=== PATIENT | male | born 1935 | race Caucasian/White ===

== ENCOUNTER 2021-02-04 12:30 | Inpatient (IN) | payer OTHER, BC ==
[2021-02-04 14:10] LABS: Absolute Lymphocytes (CBC) 1.3 K/uL (0.7-4.9); Basophils % 0.6 % (0-1.3); Hematocrit 42.9 % (39.6-49.0); Lymphocytes % 15.4 % (15.3-44.8); MPV 10.6 fL (7.6-11.3); RBC Red Blood Cell Count 4.67 M/uL (4.33-5.43)
[2021-02-04 14:29] LABS: Protime INR 1.11
[2021-02-04 14:49] LABS: ALT/SGPT 34 U/L (12-78); AST/SGOT 22 U/L (15-37); Albumin 3.4 g/dL (3.4-5.0); Alkaline Phosphatase 52 U/L (45-117); BUN Blood Urea Nitrogen 47 mg/dL (7-18); Bicarbonate 22 mmol/L (21-32); Bilirubin Direct 0.2 mg/dL (0-0.2); Bilirubin Total 0.6 mg/dL (0.2-1.0); Glucose Level 223 mg/dL (74-106); Magnesium 2.3 mg/dL (1.8-2.4); NT PRO-BNP 742 pg/mL (<450); Potassium 4.9 mmol/L (3.5-5.1); Protein, Total 7.4 g/dL (6.4-8.2); Sodium Level 135 mmol/L (136-145); Troponin (Emerg Dept Use Only) < 0.02 ng/mL (0.0-0.045)
--- NOTE | 2021-02-04 16:06 | ER ---
Nurse's Notes [facility] Name: Boby Murray Age: 85 yrs Sex: Male : 1935 Arrival Date: 02/04/2021 Time: 12:34 Bed 19 Private MD: Jeremie Garcia R Diagnosis: Pneumonia, unspecified organism-with hypoxia Presentation: 02/04 12:45 Chief complaint: Patient states: SOB x 1 year, cough x 5 days, sent by Dr. Garcia today [facility] after having blood work and chest x-ray, Dr. Garcia wants a COVID test. Coronavirus screen: Client denies travel out of the [place] in the last 14 days. cough unrelated to allergies, shortness of breath, Client presents with at least one sign or symptom that may indicate coronavirus-19. Standard/surgical mask placed on the client. Provider contacted for isolation considerations. Ebola Screen: No symptoms or risks identified at this time. Initial Sepsis Screen: Does the patient meet any 2 criteria? No. Patient's initial sepsis screen is negative. Does the patient have a suspected source of infection? No. Patient's initial sepsis screen is negative. Risk Assessment: Do you want to hurt yourself or someone else? Patient reports no desire to harm self or others. Onset of symptoms was 2019. Care prior to arrival: None. 12:45 Method Of Arrival: Ambulatory [facility] [place] 12:45 Acuity: NILO 3 7 Triage Assessment: 13:19 Respiratory: Onset: The symptoms/episode began/occurred Pt stated shortness of breath vg1 for about a year and cough began about five days ago, the patient has moderate shortness of breath. Historical: - Allergies: 12:48 No Known Allergies; jl7 - Home Meds: 15:07 metoprolol tartrate 50 mg Oral tab [Active]; isosorbide mononitrate 120 mg Oral Tb24 vg1 [Active]; aspirin 81 mg Oral tab [Active]; spironolactone 25 mg Oral tab [Active]; [place]-3 oral [Active]; Savaysa 30 mg oral tab [Active]; - PMHx: 12:48 Hypertensive disorder; High cholesterol; Myocardial infarction; jl7 - Immunization history:: Client reports receiving the 2nd dose of the Covid vaccine. - Social history:: Smoking status: Patient/guardian denies using tobacco. Screenin:18 Abuse screen: Denies threats or abuse. Nutritional screening: No deficits noted. vg1 Tuberculosis screening: No symptoms or risk factors identified. Fall Risk No fall in past 12 months (0 pts). No secondary diagnosis (0 pts). IV access (20 points). Ambulatory Aid- None/Bed Rest/Nurse Assist (0 pts). Gait- Normal/Bed Rest/Wheelchair (0 pts) Mental Status- Oriented to own ability (0 pts). Total Cabrera Fall Scale indicates No Risk (0-24 pts). Assessment: 13:10 General: Appears in no apparent distress. comfortable, Behavior is calm, cooperative. vg1 Pain: Denies pain. Neuro: Level of Consciousness is awake, alert, obeys commands, Oriented to person, place, time, situation. Cardiovascular: Patient's skin is warm and dry. Respiratory: Reports shortness of breath at rest on exertion cough that is productive, since 01/30/21 Airway is patent Respiratory effort is even, unlabored, Breath sounds with crackles in right posterior lower lobe. GI: No signs and/or symptoms were reported involving the gastrointestinal system. : No signs and/or symptoms were reported regarding the genitourinary system. EENT: Reports nasal discharge. Derm: Skin is intact, Skin is pink, warm \T\ dry. Musculoskeletal: Circulation, motion, and sensation intact. 15:06 Reassessment: Patient appears in no apparent distress at this time. Patient and/or vg1 family updated on plan of care and expected duration. Pain level reassessed. Patient is alert, oriented x 3, equal unlabored respirations, skin warm/dry/pink. Patient denies pain at this time. 17:28 Reassessment: Patient appears in no apparent distress at this time. Patient and/or vg1 family updated on plan of care and expected duration. Pain level reassessed. Patient is alert, oriented x 3, equal unlabored respirations, skin warm/dry/pink. Patient denies pain at this time. Vital Signs: 12:45 BP 136 / 76; Pulse 66; Resp 22 S; Temp 97.9(O); Pulse Ox 87% on R/A; Weight 82.55 kg; jl7 12:45 Pulse Ox 94% on 3 lpm NC; jl7 14:00 BP 108 / 72; Pulse 67; Resp 14; Pulse Ox 95% on 3 lpm NC; vg1 15:06 BP 120 / 77; Pulse 60; Resp 14; Pulse Ox 94% on 3 lpm NC; vg1 17:00 BP 112 / 73; Pulse 70; Resp 20; Pulse Ox 95% on 3 lpm NC; vg1 18:00 BP 122 / 79; Pulse 72; Resp 18; Temp 98.1; Pulse Ox 97% on 3 lpm NC; vg1 ED Course: 12:34 Patient arrived in ED. mr 12:34 Jeremie Garcia MD is Private Physician. mr 12:45 Arm band placed on right wrist. jl7 12:48 Triage completed. jl7 13:03 Lore Humphrey, RN is Primary Nurse. vg1 13:05 Meredith [facility]aldiv[facility]-C [facility]. kb 13:05 Elias Gay MD is Attending Physician. kb 13:18 Patient has correct armband on for positive identification. Placed in gown. Bed in low vg1 position. Call light in reach. Side rails up X 1. Adult w/ patient. 13:48 Inserted saline lock: 20 gauge in right antecubital area, using aseptic technique. vg1 Blood collected. 13:48 Initial lab(s) drawn, by me, sent to lab. First set of blood cultures drawn. vg1 13:50 IV discontinued, IV d/c due to infiltration. vg1 14:05 Second set of blood cultures drawn by me. vg1 14:07 Inserted saline lock: 22 gauge in right wrist, using aseptic technique. vg1 16:05 Lico Glaser MD is Hospitalizing Provider. kb 19:47 No provider procedures requiring assistance completed. Patient admitted, IV remains in vg1 place. Administered Medications: 17:22 Drug: Zithromax (azithromycin) 500 mg Route: PO; vg1 18:53 Follow up: Response: No adverse reaction vg1 17:23 Drug: Rocephin (cefTRIAXone) 1 grams Route: IV; Rate: calculated rate; Site: right vg1 wrist; 18:53 Follow up: Response: No adverse reaction; IV Status: Completed infusion vg1 Outcome: 16:05 Decision to Hospitalize by Provider. kb 19:47 Admitted to Tele accompanied by tech, via wheelchair, room 210, with oxygen, with vg1 chart, Report called to receiving RN 19:47 Condition: stable 19:47 Instructed on the need for admit. 19:48 Instructed on the need for admit. ea 19:49 Patient left the ED. vg1 Signatures: Meredith Zaldivar FNP-C FNP-Marshall Malathi Kruger, Colin, RN RN jl7 Maureen Reeves RN RN Lore Green RN RN vg1 Corrections: (The following items were deleted from the chart) 12:52 12:45 BP 136 / 76; Pulse 66bpm; Resp 22bpm; Spontaneous; Pulse Ox 89% RA; Temp 97.9F jl7 Oral; 82.55 kg; jl7
--- NOTE | 2021-02-04 16:06 | EDPHYS ---
Physician Documentation [facility] Name: Boby Murray Age: 85 yrs Sex: Male : 1935 Arrival Date: 02/04/2021 Time: 12:34 Bed 19 Private MD: Jeremie Garcia R ED Physician Elias Gay HPI: 02/04 18:49 This 85 yrs old Male presents to ER via Ambulatory with complaints of kb Breathing Difficulty, Cough. 18:49 The patient has shortness of breath at rest. Onset: The symptoms/episode began/occurred kb 1 year(s) ago. Duration: The symptoms are continuous. The patient's shortness of breath is aggravated by exertion, is alleviated by rest. Associated signs and symptoms: Pertinent positives: non-productive cough. Severity of symptoms: At their worst the symptoms were moderate in the emergency department the symptoms are unchanged. The patient has not experienced similar symptoms in the past. The patient has been recently seen by a physician: the patient's primary care provider, earlier today, with similar presenting complaints, lab tests were done, X-rays were performed, and was sent to the [facility] Emergency Department for further evaluation. Pt reports shortness of breath for a year, cough for [address] Garcia, had blood work and x-ray done and was told to come to ER for covid test. . Historical: - Allergies: 12:48 No Known Allergies; jl7 - Home Meds: 15:07 metoprolol tartrate 50 mg Oral tab [Active]; isosorbide mononitrate 120 mg Oral Tb24 vg1 [Active]; aspirin 81 mg Oral tab [Active]; spironolactone 25 mg Oral tab [Active]; [place]-3 oral [Active]; Savaysa 30 mg oral tab [Active]; - PMHx: 12:48 Hypertensive disorder; High cholesterol; Myocardial infarction; jl7 - Immunization history:: Client reports receiving the 2nd dose of the Covid vaccine. - Social history:: Smoking status: Patient/guardian denies using tobacco. ROS: 18:48 Constitutional: Negative for fever, chills, and weight loss. kb 18:48 Respiratory: Positive for cough, dyspnea on exertion, shortness of breath, Negative for hemoptysis, orthopnea, pleurisy. 18:48 All other systems are negative. Exam: 18:48 Constitutional: This is a well developed, well nourished patient who is awake, alert, kb and in no acute distress. Head/Face: Normocephalic, atraumatic. ENT: Moist Mucous membranes Cardiovascular: Regular rate and rhythm with a normal S1 and S2. No gallops, murmurs, or rubs. No pulse deficits. Abdomen/GI: Soft, non-tender. No distention Skin: Warm, dry with normal turgor. Normal color. MS/ Extremity: Pulses equal, no cyanosis. Neurovascular intact. Full, normal range of motion. Neuro: Awake and alert, GCS 15, oriented to person, place, time, and situation. Moves all extremities. Normal gait. Psych: Awake, alert, with orientation to person, place and time. Behavior, mood, and affect are within normal limits. 18:48 Respiratory: the patient does not display signs of respiratory distress, Respirations: labored breathing, that is mild, Breath sounds: rhonchi, that are mild, are located in both bases. Vital Signs: 12:45 BP 136 / 76; Pulse 66; Resp 22 S; Temp 97.9(O); Pulse Ox 87% on R/A; Weight 82.55 kg; jl7 12:45 Pulse Ox 94% on 3 lpm NC; jl7 14:00 BP 108 / 72; Pulse 67; Resp 14; Pulse Ox 95% on 3 lpm NC; vg1 15:06 BP 120 / 77; Pulse 60; Resp 14; Pulse Ox 94% on 3 lpm NC; vg1 17:00 BP 112 / 73; Pulse 70; Resp 20; Pulse Ox 95% on 3 lpm NC; vg1 18:00 BP 122 / 79; Pulse 72; Resp 18; Temp 98.1; Pulse Ox 97% on 3 lpm NC; vg1 MDM: 13:05 Patient medically screened. kb 18:47 Data reviewed: vital signs, nurses notes. Data interpreted: Pulse oximetry: on room air kb is 95 %. Interpretation: normal. Counseling: I had a detailed discussion with the patient and/or guardian regarding: the historical points, exam findings, and any diagnostic results supporting the discharge/admit diagnosis, lab results, radiology results, the need for further work-up and treatment in the hospital. Physician consultation: Lico Glaser MD regarding admission, to the telemetry unit. patient's condition, and will see patient shortly. 02/04 13:19 Order name: Basic Metabolic Panel kb 02/04 13:19 Order name: CBC with Diff kb 02/04 13:19 Order name: LFT's; Complete Time: 14:49 kb 02/04 13:19 Order name: Magnesium; Complete Time: 14:49 kb 02/04 13:19 Order name: NT PRO-BNP; Complete Time: 14:49 kb 02/04 13:19 Order name: PT-INR; Complete Time: 15:36 kb 02/04 13:19 Order name: Troponin (emerg Dept Use Only); Complete Time: 14:49 kb 02/04 13:19 Order name: Basic Metabolic Panel; Complete Time: 14:49 EDMS 02/04 13:19 Order name: CBC with Automated Diff; Complete Time: 14:16 EDMS 02/04 13:27 Order name: Blood Culture Adult (2) kb 02/04 13:27 Order name: Lactate; Complete Time: 14:47 kb 02/04 13:27 Order name: Procalcitonin; Complete Time: 15:02 kb 02/04 13:27 Order name: Blood Culture EDMS 02/04 13:19 Order name: EKG; Complete Time: 13:20 kb 02/04 13:19 Order name: Cardiac monitoring; Complete Time: 14:06 kb 02/04 13:19 Order name: EKG - Nurse/Tech; Complete Time: 14:06 kb 02/04 13:19 Order name: IV Saline Lock; Complete Time: 14:06 kb 02/04 13:19 Order name: Labs collected and sent; Complete Time: 14:06 kb 02/04 13:19 Order name: O2 Per Protocol; Complete Time: 13:24 kb 02/04 13:19 Order name: O2 Sat Monitoring; Complete Time: 13:24 kb 02/04 16:00 Order name: SARS-COV-2 RT PCR; Complete Time: 16:02 EDMS 02/04 17:52 Order name: Procalcitonin EDMS Administered Medications: 17:22 Drug: Zithromax (azithromycin) 500 mg Route: PO; vg1 18:53 Follow up: Response: No adverse reaction vg1 17:23 Drug: Rocephin (cefTRIAXone) 1 grams Route: IV; Rate: calculated rate; Site: right vg1 wrist; 18:53 Follow up: Response: No adverse reaction; IV Status: Completed infusion vg1 Disposition Summary: 02/04/21 16:05 Hospitalization Ordered Hospitalization Status: Observation kb Provider: Lico Glaser Location: Telemetry/MedSurg (observation) kb Condition: Stable kb Problem: new kb Symptoms: are unchanged kb Bed/Room Type: Standard Room Assignment: 210(02/04/21 18:36) dw Diagnosis - Pneumonia, unspecified organism - with hypoxia kb Forms: - Medication Reconciliation Form kb - SBAR form kb Addendum: 02/06/2021 19:18 Co-signature as Attending Physician, Elias Gay MD. r n Signatures: Dispatcher [employer] EDMS Meredith Zaldivar, ENTRY LEVEL SALES CONSULTANT-C ENTRY LEVEL SALES CONSULTANT-CkJeanna Leavitt RN RN dw Elias Gay MD MD rn Leal, Jahala RN RN jl7 Lore Humphrey RN RN vg1 Corrections: (The following items were deleted from the chart) 02/04 14:46 13:20 CORONAVIRUS+MR.LAB.BRZ ordered. EDMD EDMS 18:36 16:05 kb dw
[2021-02-04] MEDS ORDERED: AZITHROMYCIN 250 MG TAB ONE (17:39)
[2021-02-04] MEDS ORDERED: CEFTRIAXONE/SWI 1gm 1 GM/10 ML SYR ONE (17:40)
[2021-02-04] MEDS ORDERED: ACETAMINOPHEN 500 MG TAB PO PRN (17:46)
[2021-02-04] MEDS ORDERED: ALPRAZOLAM 0.25 MG TABLET PO PRN (17:46)
[2021-02-04] MEDS ORDERED: ONDANSETRON 4 MG/2 ML VIAL IV PRN (17:46)
[2021-02-04 20:15] VITALS: BMI 23.3
[2021-02-04] MEDS: NA CHLORIDE 0.9% 1,000 ML IV SCH (21:05)
[2021-02-04] MEDS: Levofloxacin500mg IV 500 MG/100 ML BAG IV SCH (22:11)
[2021-02-04] MEDS: PIPER/TAZO/NS 3.375gm 3.375 GM/100 ML BAG IVPB SCH (23:58)
[2021-02-05 00:47] LABS: Urine Appearance CLEAR (Clear); Urine Bilirubin NEGATIVE (Negative); Urine Blood NEGATIVE (Negative); Urine Color YELLOW (Yellow); Urine Glucose TRACE (Negative); Urine Protein NEGATIVE (Negative); Urine Specific Gravity 1.015 (1.005-1.030); Urine Urobilinogen 0.2 mg/dL (0.2-1.0)
[2021-02-05 00:51] LABS: Urine Microscopic Reflex NO UMIC
[2021-02-05] MEDS ORDERED: HEPARIN 5000 UNIT/ML 1 ML VIAL SQ SCH (01:00)
[2021-02-05 05:20] LABS: Absolute Lymphocytes (CBC) 1.4 K/uL (0.7-4.9); Basophils % 0.4 % (0-1.3); Hematocrit 40.3 % (39.6-49.0); Lymphocytes % 16.9 % (15.3-44.8); RBC Red Blood Cell Count 4.42 M/uL (4.33-5.43)
[2021-02-05 05:37] LABS: Bilirubin Total 0.6 mg/dL (0.2-1.0); Magnesium 1.9 mg/dL (1.8-2.4); Phosphorus 3.5 mg/dL (2.5-4.9); Potassium 5.2 mmol/L (3.5-5.1); Protein, Total 6.6 g/dL (6.4-8.2)
[2021-02-05] MEDS: PIPER/TAZO/NS 3.375gm 3.375 GM/100 ML BAG IVPB SCH ×4 (06:09→23:42)
[2021-02-05] MEDS: ENOXAPARIN 40 MG/0.4 ML SQ SCH (07:49)
[2021-02-05] MEDS: NA CHLORIDE 0.9% 1,000 ML IV SCH ×2 (07:51→19:43)
[2021-02-05] MEDS ORDERED: PNEUMOCOCCAL VACCINE 0.5 ML IMVAC ONE (08:00)
[2021-02-05] MEDS: BENZONATATE 100 MG CAP PO SCH ×3 (13:44→21:13)
[2021-02-05] MEDS ORDERED: GUAIFENESIN/CODEINE 5ML UCUP PO PRN (14:00)
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
--- NOTE | 2021-02-05 16:36 | EKG ---
Test Date: 2021-02-04 Test Time: 13:37:19 Mechanical Repair Worker: KATELYNN MEASUREMENT RESULTS: Intervals: Rate: 58 DE: 200 QRSD: 96 QT: 418 QTc: 410 [place]: P: 81 DE: 200 QRS: -29 T: 87 INTERPRETIVE STATEMENTS: Sinus bradycardia Low voltage QRS Anterolateral infarct, age undetermined Abnormal ECG No previous ECG available for comparison Electronically Signed On 02-05-21 16:33:11 CDT by Silvio Loyd
--- NOTE | 2021-02-05 16:49 | P.PN ---
Subjective Date of Service: 02/05/21 Patient still short of breath. Patient still a little hypoxic. Continue with nebs, steroids, and antibiotics. Repeat chest x-ray. Review of Systems 10-point ROS is otherwise unremarkable Physical Examination - Vital Signs Temperature: 97.2 F Blood Pressure: 129/72 Pulse: 104 Respirations: 20 Pulse Ox (%): 93 - Physical Exam General: Alert, In no apparent distress HEENT: Atraumatic, PERRLA, EOMI Neck: Supple, JVD not distended Respiratory: Clear to auscultation bilaterally, Normal air movement Cardiovascular: Regular rate/rhythm, Normal S1 S2 Gastrointestinal: Normal bowel sounds, No tenderness Musculoskeletal: No tenderness Integumentary: No rashes Neurological: Normal speech, Normal tone, Normal affect Lymphatics: No axilla or inguinal lymphadenopathy - Studies Medications List Reviewed: Yes Assessment & Plan - Problems (Diagnosis) (1) Community acquired bacterial pneumonia Status: Acute (2) COPD with acute exacerbation Status: Acute (3) Hypoxemia Status: Acute - Plan continue with plan of care as mentioned below 1. Continue with IV antibiotics 2. Awaiting sputum and blood culture 3. Repeat chest x-ray 4. Will proceed with CT scan of the chest if pneumonia is not improved 5. Pulmonary consultation if symptoms are not better 6. Continue with nebs as needed; will start steroids 7. O2 per protocol; will add low-dose diuretic 8. Hep-Lock IV 9. Monitor labs closely 10. GI and DVT prophylaxis Discharge Plan: Home Plan to discharge in: Greater than 2 days - Advance Directives Does patient have a Living Will: No Does patient have a Durable POA for Healthcare: No - Code Status/Comfort Care Code Status: Full Code Critical Care: No Time Spent Managing PTS Care (In Minutes): 35
[2021-02-05] MEDS: METHYLPREDNISOLONE 125 MG INJ IV SCH ×2 (17:56→23:43)
[2021-02-05] MEDS: Levofloxacin500mg IV 500 MG/100 ML BAG IV SCH (19:42)
[2021-02-05] MEDS: ALBUTEROL 2.5 MG/3 ML NEB SOL NEB SCH (19:45)
[2021-02-05] MEDS ORDERED: HOME MED 1 EA UNK (Simvastatin [Simvastatin] 40 MG Tablet) PO SCH (21:00)
[2021-02-05] MEDS: ATORVASTATIN 20 MG TAB PO SCH (21:12)
[2021-02-05] MEDS: NIACIN 500 MG SR TAB PO SCH (21:12)
[2021-02-05] MEDS: METOPROLOL TAR 25 MG TAB PO SCH (21:12)
[2021-02-05] MEDS: DIPHENHYDRAMINE 25 MG TAB/CAP PO SCH (21:13)
[2021-02-06] MEDS: ALBUTEROL 2.5 MG/3 ML NEB SOL NEB SCH ×4 (01:15→19:40)
[2021-02-06] MEDS: METHYLPREDNISOLONE 125 MG INJ IV SCH ×3 (05:00→17:05)
[2021-02-06] MEDS: PIPER/TAZO/NS 3.375gm 3.375 GM/100 ML BAG IVPB SCH ×3 (05:01→17:05)
[2021-02-06 06:06] LABS: Absolute Lymphocytes (CBC) 0.8 K/uL (0.7-4.9); Basophils % 0.1 % (0-1.3); Hematocrit 42.5 % (39.6-49.0); Lymphocytes % 9.7 % (15.3-44.8); MPV 10.2 fL (7.6-11.3); RBC Red Blood Cell Count 4.62 M/uL (4.33-5.43)
[2021-02-06 06:26] LABS: Albumin 2.9 g/dL (3.4-5.0); Phosphorus 3.1 mg/dL (2.5-4.9); Potassium 4.9 mmol/L (3.5-5.1)
[2021-02-06] MEDS: ISOSORBIDE MONO SR 60 MG TAB PO SCH (08:19)
[2021-02-06] MEDS: ENOXAPARIN 40 MG/0.4 ML SQ SCH (08:20)
[2021-02-06] MEDS: METOPROLOL TAR 50 MG TAB PO SCH (08:20)
[2021-02-06] MEDS: ASPIRIN EC 81 MG TAB PO SCH (08:23)
[2021-02-06] MEDS: BENZONATATE 100 MG CAP PO SCH ×3 (08:24→20:33)
[2021-02-06 08:53] LABS: Blood Morphology Comment NOT SEEN (NOT SEEN); Platelet Estimate ADEQ
[2021-02-06] MEDS ORDERED: SPIRONOLACTONE 25 MG TABLET PO SCH (09:00)
[2021-02-06] MEDS: NA CHLORIDE 0.9% 1,000 ML IV SCH (10:00)
[2021-02-06] MEDS: Levofloxacin500mg IV 500 MG/100 ML BAG IV SCH (18:05)
[2021-02-06] MEDS: NIACIN 500 MG SR TAB PO SCH (20:33)
[2021-02-06] MEDS: ATORVASTATIN 20 MG TAB PO SCH (20:33)
[2021-02-06] MEDS: DIPHENHYDRAMINE 25 MG TAB/CAP PO SCH (20:33)
[2021-02-06] MEDS: METOPROLOL TAR 25 MG TAB PO SCH (20:34)
[2021-02-07] MEDS: METHYLPREDNISOLONE 125 MG INJ IV SCH ×3 (01:11→12:19)
[2021-02-07] MEDS: PIPER/TAZO/NS 3.375gm 3.375 GM/100 ML BAG IVPB SCH ×2 (01:11→05:43)
[2021-02-07] MEDS: ALBUTEROL 2.5 MG/3 ML NEB SOL NEB SCH ×2 (02:30→07:37)
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
--- NOTE | 2021-02-07 08:13 | ECHO ---
HEIGHT: 6 ft 1 in WEIGHT: 181 lb 15.866 oz DATE OF STUDY: 02/06/[address]: Lico Glaser MD 2-DIMENSIONAL: YES M.MODE: YES DOPPLER: YES COLOR FLOW: YES TDS: PORTABLE: DEFINITY: BUBBLE STUDY: DIAGNOSIS: CONGESTIVE HEART FAILURE CARDIAC HISTORY: CATHERIZATION: NO SURGERY: NO PROSTHETIC VALVE: NO PACEMAKER: NO MEASUREMENTS (cm) DIASTOLIC (NORMALS) SYSTOLIC (NORMALS) IVSd 0.9 (0.6-1.2) LA Diam 2.9 (1.9-4.0) LVEF 58% LVIDd 3.6 (3.5-5.7) LVIDs 2.5 (2.0-3.5) %FS 30% LVPWd 1.0 (0.6-1.2) Ao Diam 3.4 (2.0-3.7) 2 DIMENSIONAL ASSESSMENT: RIGHT ATRIUM: NORMAL LEFT ATRIUM: NORMAL RIGHT VENTRICLE: NORMAL LEFT VENTRICLE: NORMAL TRICUSPID VALVE: NORMAL MITRAL VALVE: MITRAL ANNULAR CALCIFICATION PULMONIC VALVE: NORMAL AORTIC VALVE: NORMAL PERICARDIAL EFFUSION: NONE AORTIC ROOT: NORMAL LEFT VENTRICULAR WALL MOTION: NORMAL EJECTION FRACTION. DECREASED LEFT VENTRICULAR COMPLIANCE. DOPPLER/COLOR FLOW: DECREASED LEFT VENTRICULAR COMPLIANCE. COMMENTS: DIASTOLIC DYSFUNCTION. EJECTION FRACTION 58%. NORMAL EJECTION FRACTION. MITRAL ANNULAR CALCIFICATION. TECHNOLOGIST: SHRUTI AKBAR
[2021-02-07] MEDS: ASPIRIN EC 81 MG TAB PO SCH (08:28)
[2021-02-07] MEDS: BENZONATATE 100 MG CAP PO SCH (08:29)
[2021-02-07] MEDS: ENOXAPARIN 40 MG/0.4 ML SQ SCH (08:29)
[2021-02-07] MEDS: ISOSORBIDE MONO SR 60 MG TAB PO SCH (08:32)
[2021-02-07] MEDS: METOPROLOL TAR 50 MG TAB PO SCH (08:32)
--- NOTE | 2021-02-07 11:36 | RAD REPORT ---
EXAM DESCRIPTION: RAD - Chest Single View - 02/07/2021 11:01 am CLINICAL HISTORY: pneumonia Chest pain. COMPARISON: Chest Pa And Lat (2 Views) dated 02/04/2021 FINDINGS: Portable technique limits examination quality. The lungs are emphysematous but grossly clear. The heart is normal in size. No displaced fractures. A ortic atherosclerosis. Blunting the right costophrenic angle is noted, likely chronic. IMPRESSION: Mild diffuse COPD.
[2021-02-07 14:12] VITALS: O2SAT 92
[2021-02-10 04:56] VITALS: BP 129/72; TEMP 97.2
--- NOTE | 2021-02-10 04:59 | P.PN ---
Date of Service: 02/06/21 Subjective Patient is clinically doing well with no new complaints. Respiratory status has improved. Review of Systems 10-point ROS is otherwise unremarkable Physical Examination - Vital Signs Reviewed - Physical Exam General: Alert, In no apparent distress Respiratory: Clear to auscultation bilaterally, Normal air movement Cardiovascular: Regular rate/rhythm, Normal S1 S2 Gastrointestinal: Normal bowel sounds, No tenderness Neurological: Normal speech, Normal tone, Normal affect Assessment & Plan - Problems (Diagnosis) (1) Community acquired bacterial pneumonia Status: Acute (2) COPD with acute exacerbation Status: Acute (3) Hypoxemia Status: Acute - Plan Continue with plan of care as mentioned below 1. Continue with IV antibiotics 2. Cultures are unremarkable 3. Chest x-ray with no significant worsening 4. Outpatient evaluation with pulmonary function testing 5. Pulmonary consultation pending 6. Continue with nebs, steroids, and antibiotics 7. O2 per protocol; will add low-dose diuretic 8. Hep-Lock IV 9. Monitor labs closely 10. GI and DVT prophylaxis
--- NOTE | 2021-02-10 05:01 | P.DS ---
Discharge Date: 02/07/21 Disposition: ROUTINE DISCHARGE Discharge Condition: GOOD Reason for Admission: Pneumonia Consultations: Pulmonary - Problems (1) Community acquired bacterial pneumonia Status: Acute (2) COPD with acute exacerbation Status: Acute (3) Hypoxemia Status: Acute Brief History of Present Illness: Pt is an 85yo who was admitted to the hospital to the hospital with difficulty breathing. Patient was having dyspnea and wound was tachypneic so he came into the emergency room for further evaluation. Patient workup revealed that he was short of breath in his chest x-ray from an outside PCP revealed pneumonia. Decision was made to admit the patient to the hospital because of his comorbidities. Patient also has some fibrotic changes. Patient will be admitted for nebs, steroids, and antibiotics. Hospital Course: Patient is clinically doing much better. Continue with steroids, nebs, and antibiotics. Continue with diuretics. Patient will need close outpatient follow with Pulmonary. At this time, patient is stable for discharge home. Vital Signs/Physical Exam: Temp Pulse Resp BP Pulse Ox 97.2 F 104 H 20 129/72 93 02/10/21 04:56 02/10/21 04:56 02/10/21 04:56 02/10/21 04:56 02/10/21 04:56 General: Alert, In no apparent distress, Oriented x3 Laboratory Data at Discharge: WBC 8.50 K/uL (4.3-10.9) 02/06/21 05:31 Hgb 14.5 g/dL (13.6-17.9) 02/06/21 05:31 Hct 42.5 % (39.6-49.0) 02/06/21 05:31 Plt Count 152 K/uL (152-406) 02/06/21 05:31 PT 12.8 SECONDS (9.5-12.5) H 02/04/21 13:48 INR 1.11 02/04/21 13:48 Sodium 135 mmol/L (136-145) L 02/06/21 05:31 Potassium 4.9 mmol/L (3.5-5.1) 02/06/21 05:31 BUN 30 mg/dL (7-18) H 02/06/21 05:31 Creatinine 1.46 mg/dL (0.55-1.3) H 02/06/21 05:31 Glucose 297 mg/dL (74-106) H 02/06/21 05:31 Phosphorus 3.1 mg/dL (2.5-4.9) 02/06/21 05:31 Magnesium 1.9 mg/dL (1.8-2.4) 02/05/21 05:02 Total Bilirubin 0.6 mg/dL (0.2-1.0) 02/05/21 05:02 AST 17 U/L (15-37) 02/05/21 05:02 ALT 30 U/L (12-78) 02/05/21 05:02 Alkaline Phosphatase 47 U/L (45-117) 02/05/21 05:02 Home Medications: Aspirin [Aspirin EC 81 MG] 81 mg PO DAILY 02/05/21 Benazepril/Hydrochlorothiazide [Benazepril-Hctz 20-12.5 mg Tab] 1 tab PO BID 02/05/21 Diphenhydramine [Benadryl*] 1 tab PO BEDTIME 02/05/21 Isosorbide Mononitrate [Isosorbide Mononitrate ER] 120 mg PO DAILY 02/05/21 Metoprolol Tartrate 50 mg PO DAILY 02/05/21 Niacin 500 mg PO BEDTIME 02/05/21 Simvastatin 40 mg PO BEDTIME 02/05/21 Spironolactone 25 mg PO DAILY 02/05/21 ALPRAZolam [Xanax*] 0.25 mg PO BEDTIME PRN PRN #20 tab 02/07/21 Albuterol Neb [Proventil 0.083% Neb Soln] 2.5 mg NEB [id number] #60 amp 02/07/21 Benzonatate [Tessalon Perle*] 100 mg PO TIDP PRN #30 cap 02/07/21 Budesonide/Formoterol Fumarate [Symbicort 160-4.5 Mcg Inhaler] 1 puff IH BID #1 hfa.aer.ad 02/07/21 Guaifen W/Codeine Syrup [ROBITUSSIN A-C Syrup*] 10 ml PO BIDP PRN #100 ml 02/07/21 Tiotropium [place] [Spiriva] 18 mcg IH DAILY #1 cap.w.dev 02/07/21 levoFLOXacin [Levaquin] 500 mg PO DAILY #5 tab 02/07/21 predniSONE [Deltasone] 20 mg PO BID #20 tab 02/07/21 New Medications: levoFLOXacin [Levaquin] 500 mg PO DAILY #5 tab predniSONE [Deltasone] 20 mg PO BID #20 tab Albuterol Neb [Proventil 0.083% Neb Soln] 2.5 mg NEB [id number] #60 amp Guaifen W/Codeine Syrup [ROBITUSSIN A-C Syrup*] 10 ml PO BIDP PRN #100 ml PRN Reason: Cough Tiotropium [place] [Spiriva] 18 mcg IH DAILY #1 cap.w.dev Budesonide/Formoterol Fumarate [Symbicort 160-4.5 Mcg Inhaler] 1 puff IH BID #1 hfa.aer.ad Benzonatate [Tessalon Perle*] 100 mg PO TIDP PRN #30 cap PRN Reason: Cough ALPRAZolam [Xanax*] 0.25 mg PO BEDTIME PRN PRN #20 tab PRN Reason: Insomnia Physician Discharge Instructions: PROBLEM: Pneumonia, Hypoxia GOAL: Clear understanding of disease process INSTRUCTIONS: Diet: heart healthy Activity: Fall precautions OK TO DC IV AND DC HOME FOLLOW-UP WITH PRIMARY CARE PROVIDER IN 1-2 WEEKS FOLLOW-UP WITH PULMONARY IN 1-2 WEEKS RETURN TO THE ER IF SYMPTOMS WORSENS CALL or TEXT AT [phone] IF ANY QUESTIONS REGARDING HOSPITAL STAY. PLEASE CALL THE FLOOR AT [phone] IF ANY MEDICATION OR NURSING QUESTIONS. Diet: AHA Activity: Fall precautions Followup: Flip Murray MD [ACTIVE - CAN ADMIT] - Jeremie Garcia MD [Primary Care Provider] - Time spent managing pt's care (in minutes): 35
== END 2021-02-07 14:17 | disposition home or self-care (01) | DRG 190 ==
LOC: ER 12:30 → ERHOLD 17:46 → 2ND 19:42
PROVIDERS: ADMIT Hospitalist; ATTEND Hospitalist
DX: J44.0 Chronic obstructive pulmonary disease with (acute) lower respiratory infection (principal); J15.9 Unspecified bacterial pneumonia; N17.9 Acute kidney failure, unspecified; J44.1 Chronic obstructive pulmonary disease with (acute) exacerbation; R09.02 Hypoxemia; I12.9 Hypertensive chronic kidney disease with stage 1 through stage 4 chronic kidney disease, or unspecified chronic kidney disease; N18.30 Chronic kidney disease, stage 3 unspecified; I25.10 Atherosclerotic heart disease of native coronary artery without angina pectoris; Z20.822 Contact with and (suspected) exposure to COVID-19; Z79.82 Long term (current) use of aspirin
CPT/HCPCS: 36415; 71045; 71046; 80048; 80053; 80069; 80076; 81003; 83605; 83735; 83880; 84100; 84145; 84484; 85025; 85610; 87040; 93005; 93306; 94640; 96365; 99285; J0696; J1650; J2543; J2930; J7030; U0003

== ENCOUNTER 2021-02-18 15:50 | Observation (INO) | payer OTHER, BC ==
[2021-02-18 16:55] LABS: Urine Blood Negative (Negative); Urine Glucose 3+ (Negative); Urine Protein Negative (Negative); Urine Specific Gravity 1.015 (1.005-1.030)
[2021-02-18 16:58] LABS: Absolute Lymphocytes (CBC) 1.4 K/uL (0.7-4.9); Basophils % 0.6 % (0-1.3); Hematocrit 44.5 % (39.6-49.0); Lymphocytes % 9.5 % (15.3-44.8); MPV 10.7 fL (7.6-11.3); RBC Red Blood Cell Count 4.87 M/uL (4.33-5.43)
--- NOTE | 2021-02-18 17:06 | RAD REPORT ---
EXAM DESCRIPTION: RAD - Chest Single View - 02/18/2021 4:59 pm CLINICAL HISTORY: DYSPNEA COMPARISON: Chest Single View dated 02/07/2021; Chest Pa And Lat (2 Views) dated 02/04/2021 FINDINGS: No evidence of edema or pneumonia. Borderline cardiomegaly.No acute osseous abnormality. N o significant pleural effusions or pneumothorax. IMPRESSION: No acute cardiopulmonary disease. No significant change from prior.
[2021-02-18 17:12] LABS: Urine Bacteria <20 /HPF (NONE SEEN); Urine RBC NONE SEEN /HPF (NONE SEEN)
[2021-02-18 17:19] LABS: Potassium 5.7 mmol/L (3.5-5.1)
--- NOTE | 2021-02-18 18:07 | EDPHYS ---
Physician Documentation [facility] Name: Boby Murray Age: 85 yrs Sex: Male : 1935 Arrival Date: 02/18/2021 Time: 15:51 Bed 4 Private MD: ED Physician Elias Gay HPI: 02/18 18:01 This 85 yrs old Male presents to ER via Ambulatory with complaints of rn Abnormal Lab Results - potassium. 18:01 Reports sent by kidney doctor for high potassium. Reports recent admission to hospital, rn was feeling ok. + dyspnea on exertion lately. No vomiting. + diarrhea. NO abd pain. . Onset: The symptoms/episode began/occurred at an unknown time. Severity of symptoms: At their worst the symptoms were moderate in the emergency department the symptoms are unchanged. It is unknown whether or not the patient has had similar symptoms in the past. The patient has been recently seen by a physician:. Historical: - Allergies: 16:04 No Known Allergies; hb - PMHx: 16:04 High Cholesterol; Hypertensive disorder; Myocardial infarction; hb - Immunization history:: Adult Immunizations up to date. - Social history:: Smoking status: Patient denies any tobacco usage or history of. - Family history:: not pertinent. - Hospitalizations: : The patient was recently seen at [facility]. ROS: 18:01 Constitutional: Negative for fever, chills, and weight loss, Eyes: Negative for injury, rn pain, redness, and discharge, Neck: Negative for injury, pain, and swelling, Cardiovascular: Negative for chest pain, palpitations, and edema, Respiratory: Negative for cough, wheezing, and pleuritic chest pain, Abdomen/GI: Negative for abdominal pain, nausea, vomiting, and constipation, Back: Negative for injury and pain, : Negative for injury, bleeding, discharge, and swelling, MS/Extremity: Negative for injury and deformity, Skin: Negative for injury, rash, and discoloration, Neuro: Negative for headache, weakness, numbness, tingling, and seizure. Exam: 18:01 Constitutional: This is a well developed, well nourished patient who is awake, alert, rn and in no acute distress. Ambulatory to and from bathroom. Head/Face: Normocephalic, atraumatic. Eyes: Periorbital areas with no swelling, redness, or edema. ENT: dry MM Cardiovascular: Regular rate and rhythm with a normal S1 and S2. No gallops, murmurs, or rubs. Normal PMI, no JVD. No pulse deficits. Respiratory: Mild tachypnea, no retractions, improves with rest Abdomen/GI: soft, non-tender Skin: Warm, dry MS/ Extremity: Pulses equal, no cyanosis. Neurovascular intact. Full, normal range of motion. Equal circumference. Neuro: Awake and alert, GCS 15, oriented to person, place, time, and situation. Cranial nerves II-XII grossly intact. Motor strength 5/5 in all extremities. Sensory grossly intact. Cerebellar exam normal. Normal gait. Vital Signs: 16:02 BP 106 / 70; Pulse 66; Resp 20; Temp 97.2; Pulse Ox 88% on 2 lpm NC; Weight 81.65 kg; hb Height 6 ft. (182.88 cm); Pain 0/10; 17:01 BP 99 / 72; Pulse 70; Resp 17; Pulse Ox 95% on 2 lpm NC; tw2 18:19 BP 100 / 64; Pulse 65; Resp 16; Pulse Ox 95% on 2 lpm NC; tw2 21:52 BP 102 / 68; Pulse 74; Resp 16; Pulse Ox 98% on 2 lpm NC; ak2 16:02 Body Mass Index 24.41 (81.65 kg, 182.88 cm) hb MDM: 16:16 Patient medically screened. rn 18:03 Differential Diagnosis hyperkalemia, hyperglycemia, dehydration, CKD.. Data reviewed: rn vital signs, nurses notes, lab test result(s), EKG, radiologic studies, plain films, and as a result, I will admit patient. Counseling: I had a detailed discussion with the patient and/or guardian regarding: the historical points, exam findings, and any diagnostic results supporting the discharge/admit diagnosis. 18:03 ED course: Consulted with Dr. Broussard, requested 80mg lasix and NS to be given to lower rn potassium, but BP on low side, will be more gentle for now, reeval, and administer rest of lasix when we can.. 02/18 16: Order name: Urine Microscopic Only; Complete Time: 17:17 cp 02/18 16:16 Order name: CBC with Diff; Complete Time: 17:17 rn 02/18 16:16 Order name: Basic Metabolic Panel; Complete Time: 18:00 rn 02/18 16:16 Order name: BNP; Complete Time: 18:00 rn 02/18 16:55 Order name: Urine Dipstick-Ancillary; Complete Time: 17:17 EDMS 02/18 18:32 Order name: Stool Culture rn 02/18 16:16 Order name: EKG; Complete Time: 16:17 rn 02/18 16:16 Order name: XRAY Chest (1 view); Complete Time: 17:17 rn 02/18 18:51 Order name: CONS Physician Consult EDMI 02/18 20:47 Order name: COVID-19 : Document "Date of Symptom Onset" if Symptomatic. [facility] 02/18 22:05 Order name: SARS-COV-2 RT PCR EDMI 02/18 16:16 Order name: IV Start; Complete Time: 17:33 rn 02/18 16:16 Order name: EKG - Nurse/Tech; Complete Time: 17:33 rn Administered Medications: 18:02 CANCELLED (Duplicate Order): Lasix (furosemide) 80 mg IVP once; give over 2 minutes rn 18:17 Drug: NS 0.9% 500 ml Route: IV; Rate: bolus; Site: left antecubital; tw2 21:47 Follow up: IV Status: Completed infusion [facility] 18:17 Drug: Lasix (furosemide) 40 mg Route: IVP; Site: left antecubital; tw2 21:03 Follow up: Response: No adverse reaction [facility] Disposition Summary: 02/18/21 18:06 Hospitalization Ordered Hospitalization Status: Inpatient Admission rn Provider: Lee Nascimento rn [facility] rn Condition: Stable rn Problem: new rn Symptoms: have improved rn Bed/Room Type: Standard rn Room Assignment: 230(02/18/21 22:08) cg Diagnosis - Hyperkalemia rn - Chronic kidney disease, stage 3 (moderate) rn - Hyperglycemia, unspecified rn Forms: - Medication Reconciliation Form rn - SBAR form rn Signatures: Dispatcher [employer] [facility] Elias Gay MD MD rn Page, Corey, PA PA cp Garcia, Cindy, RN RN cg Baxter, Heather, RN RN hb Wise, Tara, RN RN [facility] Lee Lynn RN 8 Corrections: (The following items were deleted from the chart) 17:33 16:16 Accucheck ordered. rn tw2 18:02 18:00 Lasix (furosemide) 80 mg IVP once; give over 2 minutes ordered. rn rn 18:04 18:01 Constitutional: This is a well developed, well nourished patient who is awake, rn alert, and in no acute distress. rn 22:08 18:06 rn cg
--- NOTE | 2021-02-18 18:07 | ER ---
Nurse's Notes [facility] Name: Boby Murray Age: 85 yrs Sex: Male : 1935 Arrival Date: 02/18/2021 Time: 15:51 Bed 4 Private MD: Diagnosis: Hyperkalemia;Chronic kidney disease, stage 3 (moderate);Hyperglycemia, unspecified Presentation: 02/18 16:02 Chief complaint: Sent by Dr. Gresham for high potassium. Pt reports generalized weakness hb x 1 week. Coronavirus screen: At this time, the client does not indicate any symptoms associated with coronavirus-19. Ebola Screen: No symptoms or risks identified at this time. Initial Sepsis Screen: Does the patient meet any 2 criteria? No. Patient's initial sepsis screen is negative. Does the patient have a suspected source of infection? No. Patient's initial sepsis screen is negative. Risk Assessment: Do you want to hurt yourself or someone else? Patient reports no desire to harm self or others. Onset of symptoms was February 18, 2021. 16:02 Method Of Arrival: Ambulatory hb 16:02 Acuity: NILO 2 hb Historical: - Allergies: 16:04 No Known Allergies; hb - PMHx: 16:04 High Cholesterol; Hypertensive disorder; Myocardial infarction; hb - Immunization history:: Adult Immunizations up to date. - Social history:: Smoking status: Patient denies any tobacco usage or history of. - Family history:: not pertinent. - Hospitalizations: : The patient was recently seen at [facility]. Screenin:11 Abuse screen: Denies threats or abuse. Nutritional screening: No deficits noted. tw2 Tuberculosis screening: No symptoms or risk factors identified. Fall Risk Secondary diagnosis (15 points) impaired mobility. Assessment: 16:13 General: Appears in no apparent distress. Behavior is calm, cooperative, appropriate tw2 for age. Pain: Denies pain. Neuro: Level of Consciousness is awake, alert, obeys commands, Oriented to person, place, situation. Cardiovascular: Patient's skin is warm and dry. Respiratory: Airway is patent Respiratory effort is even, unlabored, Respiratory pattern is regular, symmetrical. GI: No signs and/or symptoms were reported involving the gastrointestinal system. : No signs and/or symptoms were reported regarding the genitourinary system. EENT: No signs and/or symptoms were reported regarding the EENT system. Musculoskeletal: Range of motion: intact in all extremities. 17:15 Reassessment: Patient appears in no apparent distress at this time. No changes from tw2 previously documented assessment. Patient and/or family updated on plan of care and expected duration. Pain level reassessed. Patient is alert, oriented x 3, equal unlabored respirations, skin warm/dry/pink. 18:19 Reassessment: Patient appears in no apparent distress at this time. No changes from tw2 previously documented assessment. Patient and/or family updated on plan of care and expected duration. Pain level reassessed. Patient is alert, oriented x 3, equal unlabored respirations, skin warm/dry/pink. 21:52 Reassessment: Patient and/or family updated on plan of care and expected duration. Pain ak2 level reassessed. Vital Signs: 16:02 BP 106 / 70; Pulse 66; Resp 20; Temp 97.2; Pulse Ox 88% on 2 lpm NC; Weight 81.65 kg; hb Height 6 ft. (182.88 cm); Pain 0/10; 17:01 BP 99 / 72; Pulse 70; Resp 17; Pulse Ox 95% on 2 lpm NC; tw2 18:19 BP 100 / 64; Pulse 65; Resp 16; Pulse Ox 95% on 2 lpm NC; tw2 21:52 BP 102 / 68; Pulse 74; Resp 16; Pulse Ox 98% on 2 lpm NC; ak2 16:02 Body Mass Index 24.41 (81.65 kg, 182.88 cm) ED Course: 15:51 Patient arrived in ED. as 16:04 Triage completed. hb 16:04 Arm band placed on. hb 16:11 Bed in low position. Call light in reach. Side rails up X2. hall monitor on. Pulse tw2 ox on. NIBP on. 16:12 Mary Suarez, RUTH is Primary Nurse. tw2 16:12 Nelson Galindo PA is PHCP. cp 16:12 Elias Gay MD is Attending Physician. cp 17:00 XRAY Chest (1 view) In Process Unspecified. EDMS 18:05 Lee Nascimento is Hospitalizing Provider. rn 19:07 Report given to RUTH Rausch and RUTH Escobar. tw2 22:49 No provider procedures requiring assistance completed. Patient admitted, IV remains in [address] place. Administered Medications: 18:02 CANCELLED (Duplicate Order): Lasix (furosemide) 80 mg IVP once; give over 2 minutes rn 18:17 Drug: NS 0.9% 500 ml Route: IV; Rate: bolus; Site: left antecubital; tw2 21:47 Follow up: IV Status: Completed infusion [facility] 18:17 Drug: Lasix (furosemide) 40 mg Route: IVP; Site: left antecubital; tw2 21:03 Follow up: Response: No adverse reaction [facility] Outcome: 18:06 Decision to Hospitalize by Provider. rn 22:49 Admitted to Med/surg accompanied by tech, via stretcher, with chart. [facility] 22:49 Condition: good 22:49 Instructed on the need for admit, Demonstrated understanding of instructions. 22:50 Patient left the ED. [facility] Signatures: Dispatcher [employer] EDMS Elizabeth Lala Roman, MD MD rn Page, Corey, PA PA Charlette Doyle RN RN Mary Suarez RN RN 2 Lee Lynn RN RN [facility] Shalom Benson ak2 Corrections: (The following items were deleted from the chart) 18:19 17:01 BP 99 / 72; Pulse 70bpm; Resp 17bpm; Pulse Ox 95% RA; tw2 tw2
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
[2021-02-18] MEDS ORDERED: ACETAMINOPHEN 500 MG TAB PO PRN (22:41)
[2021-02-18] MEDS ORDERED: NA CHLORIDE 0.9% 500 ML IV ONE (22:41)
[2021-02-18] MEDS ORDERED: ONDANSETRON 4 MG/2 ML VIAL IV PRN (22:41)
[2021-02-18] MEDS ORDERED: IPRATROPIUM BROM 0.5MG/2.5ML NEB PRN (22:41)
[2021-02-18 23:23] VITALS: BMI 24.1
[2021-02-18] MEDS: INSULIN -REGULAR HUMAN 50 UNIT/0.5 ML ML SQ SCH (23:55)
[2021-02-19] MEDS: ALBUTEROL 2.5 MG/3 ML NEB SOL NEB SCH ×4 (00:20→13:58)
[2021-02-19] MEDS ORDERED: MELATONIN 5 MG TABLET PO PRN (00:52)
[2021-02-19 04:11] LABS: Absolute Lymphocytes (CBC) 2.5 K/uL (0.7-4.9); Basophils % 0.4 % (0-1.3); Hematocrit 41.6 % (39.6-49.0); Lymphocytes % 21.5 % (15.3-44.8); MPV 10.2 fL (7.6-11.3); RBC Red Blood Cell Count 4.61 M/uL (4.33-5.43)
[2021-02-19 04:44] LABS: Albumin 3.2 g/dL (3.4-5.0); Bilirubin Total 0.8 mg/dL (0.2-1.0); Phosphorus 3.3 mg/dL (2.5-4.9); Potassium 5.3 mmol/L (3.5-5.1); Protein, Total 6.1 g/dL (6.4-8.2); Thyroid Stimulating Hormone 1.23 uIU/mL (0.360-3.740)
[2021-02-19] MEDS: INSULIN -REGULAR HUMAN 50 UNIT/0.5 ML ML SQ SCH ×3 (05:00→17:54)
[2021-02-19] MEDS ORDERED: FUROSEMIDE 40 MG/4 ML VIAL IV ONE ×2 (05:41→06:00)
[2021-02-19] MEDS ORDERED: NA CHLORIDE 0.9% 1,000 ML IV ONE (05:41)
[2021-02-19] MEDS: HEPARIN 5000 UNIT/ML 1 ML VIAL SQ SCH ×3 (08:55→17:35)
--- NOTE | 2021-02-19 12:41 | EKG ---
Test Date: 2021-02-18 Test Time: 16:33:37 [employer] Manager: MARU MEASUREMENT RESULTS: Intervals: Rate: 106 MD: 184 QRSD: 94 QT: 372 QTc: 494 [place]: P: 67 MD: 184 QRS: -36 T: 93 INTERPRETIVE STATEMENTS: Sinus rhythm with frequent premature ventricular complexes Left axis deviation Low voltage QRS Inferior infarct, age undetermined Anterolateral infarct, age undetermined Abnormal ECG Compared to ECG 02/04/2021 13:37:19 Ventricular premature complex(es) now present Left-axis deviation now present Sinus bradycardia no longer present Myocardial infarct finding still present Electronically Signed On 02-19-21 12:37:39 CDT by Silvio Loyd
[2021-02-19] MEDS ORDERED: NA CHLORIDE 0.9% 250 ML IV ONE (13:47)
[2021-02-19] MEDS ORDERED: NA CHLORIDE 0.9% 1,000 ML IV SCH (14:00)
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
[2021-02-19 15:24] VITALS: O2SAT 91
[2021-02-19 18:44] LABS: Potassium 4.3 mmol/L (3.5-5.1)
[2021-02-19 21:20] VITALS: BP 119/83; TEMP 97.3
--- NOTE | 2021-03-10 11:23 | P.DS ---
Discharge Date: 02/19/21 Primary Care Provider: Radha Disposition: ROUTINE DISCHARGE Discharge Condition: GOOD Reason for Admission: hyperkalemia Brief History of Present Illness: Mr. Murray is an 85 yo male with CAD and CKD sent today by emergency planning and response manager for elevated potassium and blood glucose levels. He reports no other complaints. Was recently discharged from the hospital with diagnosis of pneumonia, still on home oxygen until followup with pastry artist in a few weeks. WBC 14.7, K 5.7, Na 130, BUN 58, Cr 1.74, GFR 37, Glu 315. Received 500cc bolus and 40 Lasix IV in ED. Hospital Course: Patient was dialyzed and potassium of blood sugars are stable. At this time, patient is stable for discharge and will follow up with his PCP and emergency planning and response manager as an outpatient. Vital Signs/Physical Exam: Temp Pulse Resp BP Pulse Ox 97.3 F 78 18 119/83 92 02/19/21 20:00 02/19/21 20:00 02/19/21 20:00 02/19/21 20:00 02/19/21 20:00 General: Alert, In no apparent distress, Oriented x3 Laboratory Data at Discharge: WBC 11.60 K/uL (4.3-10.9) H D 02/19/21 03:46 Hgb 14.1 g/dL (13.6-17.9) 02/19/21 03:46 Hct 41.6 % (39.6-49.0) 02/19/21 03:46 Plt Count 165 K/uL (152-406) D 02/19/21 03:46 Sodium 135 mmol/L (136-145) L 02/19/21 18:15 Potassium 4.3 mmol/L (3.5-5.1) 02/19/21 18:15 BUN 44 mg/dL (7-18) H 02/19/21 18:15 Creatinine 1.44 mg/dL (0.55-1.3) H 02/19/21 18:15 Glucose 182 mg/dL (74-106) H 02/19/21 18:15 Phosphorus 3.3 mg/dL (2.5-4.9) 02/19/21 03:46 Magnesium 2.0 mg/dL (1.8-2.4) 02/19/21 03:46 Total Bilirubin 0.8 mg/dL (0.2-1.0) 02/19/21 03:46 AST 12 U/L (15-37) L 02/19/21 03:46 ALT 29 U/L (12-78) 02/19/21 03:46 Alkaline Phosphatase 44 U/L (45-117) L 02/19/21 03:46 Triglycerides 159 mg/dL (<150) H 02/19/21 03:46 Cholesterol 116 mg/dL (<200) 02/19/21 03:46 HDL Cholesterol 40 mg/dL (40-60) 02/19/21 03:46 Cholesterol/HDL Ratio 2.90 02/19/21 03:46 Home Medications: Aspirin [Aspirin EC 81 MG] 81 mg PO DAILY 02/05/21 Isosorbide Mononitrate [Isosorbide Mononitrate ER] 120 mg PO DAILY 02/05/21 Metoprolol Tartrate 50 mg PO DAILY 02/05/21 Niacin 500 mg PO BEDTIME 02/05/21 Albuterol Neb [Proventil 0.083% Neb Soln] 2.5 mg NEB [id number] #60 amp 02/07/21 Benzonatate [Tessalon Perle*] 100 mg PO TIDP PRN #30 cap 02/07/21 Budesonide/Formoterol Fumarate [Symbicort 160-4.5 Mcg Inhaler] 1 puff IH BID #1 hfa.aer.ad 02/07/21 Guaifen W/Codeine Syrup [ROBITUSSIN A-C Syrup*] 10 ml PO BIDP PRN #100 ml 02/07/21 hydroCHLOROthiazide [Hydrochlorothiazide] 25 mg PO DAILY #30 tablet 02/19/21 New Medications: hydroCHLOROthiazide [Hydrochlorothiazide] 25 mg PO DAILY #30 tablet Physician Discharge Instructions: OK TO DC IV AND DC HOME FOLLOW-UP WITH PRIMARY CARE PROVIDER, Dr. Garcia, IN 1-2 WEEKS-patient is advised to get labs repeated to monitor renal function and potassium level FOLLOW-UP WITH CARDIOLOGY IN 1-2 WEEKS FOLLOW-UP WITH NEPHROLOGY, Dr. JEANETTE MORRIS in am RETURN TO THE ER IF symptoms worsen Patient needs to be on a low-potassium diet CALL or TEXT AT [phone] IF ANY QUESTIONS REGARDING HOSPITAL STAY. PLEASE CALL THE FLOOR AT [phone] IF ANY MEDICATION OR NURSING QUESTIONS. Diet: Renal Activity: Fall precautions Followup: Jeremie Garcia MD [ACTIVE - CAN ADMIT] - Shaila Broussard MD [Primary Care Provider] - (follow up, call to schedule appointment) Time spent managing pt's care (in minutes): 35
== END 2021-02-19 20:18 | disposition home or self-care (01) ==
LOC: ER 15:50 → ERHOLD 18:50 → 2ND 22:16
PROVIDERS: ADMIT Hospitalist; ATTEND Hospitalist
DX: E87.5 Hyperkalemia (principal); I12.9 Hypertensive chronic kidney disease with stage 1 through stage 4 chronic kidney disease, or unspecified chronic kidney disease; N18.32 Chronic kidney disease, stage 3b; R73.9 Hyperglycemia, unspecified; I25.10 Atherosclerotic heart disease of native coronary artery without angina pectoris; E87.1 Hypo-osmolality and hyponatremia; E78.00 Pure hypercholesterolemia, unspecified; I25.2 Old myocardial infarction; Z99.81 Dependence on supplemental oxygen; Z79.82 Long term (current) use of aspirin; Z87.891 Personal history of nicotine dependence; Z20.822 Contact with and (suspected) exposure to COVID-19; Z82.49 Family history of ischemic heart disease and other diseases of the circulatory system
CPT/HCPCS: 96361; 93005; 87040; 87045; 85025 ×2; 80048 ×2; 36415; 83735; 84100; 84132; 80061; 82947 ×6; 87046; 83605; 84443; 83036; 84439; 80053; 84145; 83880 ×2; 71045; 94640; 94760 ×2; 96374; 99285; U0003; J1644 ×3; J7050; J7040; J7030 ×2; G0378 ×2; 81003; 81015; J1940

== ENCOUNTER 2021-03-18 13:49 | Inpatient (IN) | payer OTHER, BC ==
[2021-03-18 15:05] LABS: Absolute Lymphocytes (CBC) 1.9 K/uL (0.7-4.9); Basophils % 0.7 % (0-1.3); Hematocrit 45.1 % (39.6-49.0); Lymphocytes % 11.5 % (15.3-44.8); MPV 10.5 fL (7.6-11.3)
[2021-03-18 15:10] LABS: Protime INR 0.97
[2021-03-18] MEDS ORDERED: NA CHLORIDE 0.9% 1,000 ML ONE ×2 (15:19→16:53)
[2021-03-18 15:30] LABS: Urine Blood Trace-intact (Negative); Urine Glucose 2+ (Negative); Urine Protein Negative (Negative)
--- NOTE | 2021-03-18 15:42 | RAD REPORT ---
EXAM DESCRIPTION: RAD - Chest Single View - 03/18/2021 3:15 pm CLINICAL HISTORY: COUGH Chest pain. COMPARISON: Chest Single View dated 02/18/2021; Chest Single View dated 02/07/2021; Chest Pa And Lat (2 Views) dated 02/04/2021 FINDINGS: Portable technique limits examination quality. Hazy right lung bases seen. Small right pleural effusion is noted. The heart is normal in size. No di splaced fractures.Aortic atherosclerosis. IMPRESSION: Mild/early infiltrate right base is possible.
[2021-03-18 16:01] LABS: Magnesium 3.2 mg/dL (1.8-2.4); Potassium 5.4 mmol/L (3.5-5.1)
--- NOTE | 2021-03-18 16:03 | ER ---
Nurse's Notes [facility] Name: Boby Murray Age: 85 yrs Sex: Male : 1935 Arrival Date: 03/18/2021 Time: 13:54 Bed 15 Private MD: Jeremie Garcia R Diagnosis: Pneumonia, unspecified organism;Other specified diabetes mellitus with ketoacidosis without coma;Dehydration Presentation: 03/18 14:11 Chief complaint: Patient states: Sent over by Nephrology Dr. Broussard Pt stated, "I've kg been urinating every hour on the hour. I havent slept well in the last 4 days. ". Coronavirus screen: Client denies travel out of the [place] in the last 14 days. At this time, unable to obtain information related to travel outside the [place] At this time, the client does not indicate any symptoms associated with coronavirus-19. Ebola Screen: Patient negative for fever greater than or equal to 101.5 degrees Fahrenheit, and additional compatible Ebola Virus Disease symptoms Patient denies exposure to infectious person. Patient denies travel to an Ebola-affected area in the 21 days before illness onset. 14:11 Method Of Arrival: Wheelchair kg 14:11 Acuity: NILO 3 kg 14:25 Initial Sepsis Screen: Does the patient meet any 2 criteria? No. Patient's initial kg sepsis screen is negative. Does the patient have a suspected source of infection? No. Patient's initial sepsis screen is negative. Risk Assessment: Do you want to hurt yourself or someone else? Patient reports no desire to harm self or others. Onset of symptoms was March 15, 2021. 16:27 Acuity: NILO 2 iw Triage Assessment: 14:16 The onset of the patients symptoms was. kg 14:25 General: Appears in no apparent distress. Behavior is calm, cooperative, appropriate kg for age, quiet. Pain: Denies pain. Historical: - Allergies: 14:16 No Known Allergies; kg - Home Meds: 14:16 aspirin 81 mg Oral tab [Active]; isosorbide mononitrate 120 mg Oral Tb24 [Active]; kg metoprolol tartrate 50 mg Oral tab once daily [Active]; [place]-3 Oral [Active]; simvastatin 40 mg Oral tab 1 tab once daily [Active]; Veltassa 8.4 gram oral pwpk 1 packet once daily [Active]; hydrochlorothiazide 25 mg Oral tab 1 tab once daily [Active]; metoprolol tartrate 25 mg Oral tab 1 tab Q Nightly [Active]; albuterol sulfate 2.5 mg /3 mL (0.083 %) Nebulizer nebu 3 mL every 6 hours [Active]; prednisolone 10 mg Oral tab 1 tab 2 times per day [Active]; Trelegy Ellipta Inhaled [Active]; Ventolin HFA 90 mcg/actuation Nebulizer HFAA 1 puff every 4 hours [Active]; - PMHx: 14:16 High Cholesterol; Hypertensive disorder; Myocardial infarction; kg - Immunization history:: Adult Immunizations up to date, Adult Immunizations Client reports receiving the 2nd dose of the Covid vaccine, Date received: October 10, 2020 Pfizer Client reports receiving the 1st dose of the Covid vaccine, September 19, 2020 [employer]. - Social history:: Smoking status: Patient denies any tobacco usage or history of. - Family history:: not pertinent. - Hospitalizations: : No recent hospitalization is reported. Screenin:26 Abuse screen: Denies threats or abuse. Denies injuries from another. Nutritional kg screening: No deficits noted. Tuberculosis screening: No symptoms or risk factors identified. Fall Risk Fall in past 12 months (25 points). Secondary diagnosis (15 points) IV access (20 points). Ambulatory Aid- Crutches/Cane/Walker (15 pts). Gait- Weak (10 pts.). Mental Status- Oriented to own ability (0 pts). Total Cabrera Fall Scale indicates Low Risk Score (25-44 pts). Fall prevention measures have been instituted. Side Rails Up X 2 Placed close to Nursing Station Frequent Obs/Assesments occuring Family Present and informed to notify staff if they need to leave bedside As available Patient and Family Educated on Fall Prevention Program and strategies. Assessment: 14:30 General: Appears in no apparent distress. Behavior is calm, cooperative, appropriate ll1 for age. Pain: Denies pain. Neuro: No deficits noted. Cardiovascular: Reports fatigue, Heart tones S1 S2 Capillary refill < 3 seconds Clubbing of nail beds is absent Patient's skin is warm and dry. Respiratory: No deficits noted. GI: Abdomen is flat, Bowel sounds present X 4 quads. Abd is soft and non tender X 4 quads. : Urine is clear, Reports urinary frequency, Denies burning with urination. Vital Signs: 14:11 Pulse 87; Resp 18; Temp 96.3; Pulse Ox 96% on R/A; Weight 77.11 kg (R); Height 6 ft. 0 kg in. (182.88 cm); Pain 0/10; 14:25 BP 128 / 61; kg 17:39 BP 100 / 71; Pulse 75; Resp 18; Pulse Ox 94% on 2 lpm NC; ll1 14:11 Body Mass Index 23.06 (77.11 kg, 182.88 cm) kg ED Course: 13:54 Patient arrived in ED. mr 13:55 Jeremie Garcia MD is Private Physician. mr 14:15 Triage completed. kg 14:25 Elias Gay MD is Attending Physician. rn 14:25 Arm band placed on right wrist. kg 14:26 Patient has correct armband on for positive identification. kg 14:31 Olamide Healy, RUTH is Primary Nurse. ll1 14:31 Patient placed in an exam room, on a stretcher. ll1 14:45 Inserted saline lock: 20 gauge in right forearm, using aseptic technique. Blood ll1 collected. 15:00 Magnesium Sent. [facility] 15:00 Basic Metabolic Panel Sent. 5 15:00 Blood Culture Sent. [facility] 15:00 CBC with Automated Diff Sent. [facility] 15:01 Blood Culture Adult (2) Sent. [facility] 15:01 Chest Single View XRAY Sent. [facility] 15:01 Lactate Sent. [facility] 15:01 Procalcitonin Sent. [facility] 15:01 Protime (+inr) Sent. [facility] 15:01 Ptt, Activated Sent. [facility] 15:01 Initial lab(s) drawn, by ED staff, sent to lab. EKG done, by ED staff, reviewed by abdiel Gay MD COVID swab sent to lab. 15:02 Warm blanket given. Pillow given. campus monitor on. Pulse ox on. NIBP on. [facility] 15:02 Bed in low position. Call light in reach. Side rails up X2. Adult w/ patient. 5 15:15 Chest Single View XRAY In Process Unspecified. EDMS 15:29 Bladder scan completed. 88 ml post void residual, Dr. Gay informed. Voided 200 ml ll1 clear yellow urine. 15:32 Urine Microscopic Only Sent. mh5 15:32 Urine Culture Sent. mh5 15:32 Magnesium Sent. mh5 15:32 Basic Metabolic Panel Sent. 5 15:32 Blood Culture Sent. 5 16:01 Lico Glaser MD is Hospitalizing Provider. rn 19:17 Primary Nurse role handed off by Olamide Healy RN mw2 03/19 08:10 Olamide Healy RN is Primary Nurse. ll1 Administered Medications: 03/18 15:04 Drug: NS 0.9% 1000 ml Route: IV; Rate: 1000 ml; Site: right forearm; ll1 16:00 Follow up: Response: No adverse reaction; RASS: Alert and Calm (0); IV Status: ll1 Completed infusion; IV Intake: 1000ml 16:42 Drug: Insulin Regular Human 10 units {Co-Signature: vg1 (Lore Humphrey RN).} Route: ll1 IVP; Site: right forearm; 17:38 Follow up: Response: No adverse reaction; RASS: Alert and Calm (0) ll1 16:43 Drug: Rocephin (cefTRIAXone) 1 grams Route: IV; Rate: calculated rate; Site: right ll1 forearm; 17:38 Follow up: Response: No adverse reaction; IV Status: Completed infusion; IV Intake: [id number] 16:44 Not Given (Physician Discretion; doctor changed order): Insulin Regular Human 10 units ll1 Sub-Q once 16:44 Drug: NS 0.9% 1000 ml Route: IV; Rate: 1000 ml; Site: right forearm; ll1 18:28 Follow up: Response: No adverse reaction; IV Status: Completed infusion; IV Intake: ll1 1000ml 17:35 Drug: Insulin Drip - (Insulin Regular Human 100 units, NS 0.9% 100 ml) {Co-Signature: ll1 vg1 (Lore Humphrey RN).} Route: IV; Rate: calculated rate; Site: right forearm; 18:28 Drug: AZITHromycin 500 mg Route: IVPB; Infused Over: 1 hrs; Site: right forearm; ll1 Intake: 16:00 IV: 1000ml; Total: 1000ml. ll1 17:38 IV: 10ml; Total: 1010ml. ll1 18:28 IV: 1000ml; Total: 2010ml. ll1 Outcome: 16:02 Decision to Hospitalize by Provider. rn 03/19 12:34 Patient left the ED. tr6 Signatures: Dispatcher [employer] EDRI Malathi Kruger Kina Leigh, RN Elias Giron MD MD rn Martinez, Maria [facility] Don, Elijah 2 Olamide Healy RN RN ll1 Gabrielle Wright RN RN tr6 Natali Llamas RN RN kg Lore Humphrey RN vg1 Corrections: (The following items were deleted from the chart) 03/18 14:23 14:16 Home Meds: spironolactone 25 mg Oral tab; kg kg 14:25 14:11 Chief complaint: Patient states: Sent over by Nephrology Dr. Broussard Pt stated, kg "I've been urinating every hour on the hour. I havent slept well in the last 4 days. " kg
--- NOTE | 2021-03-18 16:03 | EDPHYS ---
Physician Documentation [facility] Name: Boby Murray Age: 85 yrs Sex: Male : 1935 Arrival Date: 03/18/2021 Time: 13:54 Bed 15 Private MD: Jeremie Garcia R ED Physician Elias Gay HPI: 03/18 15:08 This 85 yrs old Male presents to ER via Wheelchair with complaints of rn Weakness, Dehydration. 15:08 The patient presents with urinary symptoms, urinary frequency. Onset: The rn symptoms/episode began/occurred 2 day(s) ago. Modifying factors: The symptoms are alleviated by nothing, the symptoms are aggravated by nothing. Associated signs and symptoms: Pertinent negatives: abdominal pain, fever, vomiting. Severity of symptoms: At their worst the symptoms were moderate, in the emergency department the symptoms are unchanged. The patient has not experienced similar symptoms in the past. The patient has not recently seen a physician. Patient sent in by Dr. Broussard for evaluation of increased urinary frequency and generalized weakness. Patient reports generalized weakness and increased urinary frequency for 3 days now. No fever. Positive for generalized fatigue. Denies chest pain or shortness of breath.. Historical: - Allergies: 14:16 No Known Allergies; kg - Home Meds: 14:16 aspirin 81 mg Oral tab [Active]; isosorbide mononitrate 120 mg Oral Tb24 [Active]; kg metoprolol tartrate 50 mg Oral tab once daily [Active]; Boles-3 Oral [Active]; simvastatin 40 mg Oral tab 1 tab once daily [Active]; Veltassa 8.4 gram oral pwpk 1 packet once daily [Active]; hydrochlorothiazide 25 mg Oral tab 1 tab once daily [Active]; metoprolol tartrate 25 mg Oral tab 1 tab Q Nightly [Active]; albuterol sulfate 2.5 mg /3 mL (0.083 %) Nebulizer nebu 3 mL every 6 hours [Active]; prednisolone 10 mg Oral tab 1 tab 2 times per day [Active]; Trelegy Ellipta Inhaled [Active]; Ventolin HFA 90 mcg/actuation Nebulizer HFAA 1 puff every 4 hours [Active]; - PMHx: 14:16 High Cholesterol; Hypertensive disorder; Myocardial infarction; kg - Immunization history:: Adult Immunizations up to date, Adult Immunizations Client reports receiving the 2nd dose of the Covid vaccine, Date received: October 10, 2020 [facility] Client reports receiving the 1st dose of the Covid vaccine, September 19, 2020 [facility]. - Social history:: Smoking status: Patient denies any tobacco usage or history of. - Family history:: not pertinent. - Hospitalizations: : No recent hospitalization is reported. ROS: 15:08 Constitutional: Negative for fever, chills, and weight loss, Eyes: Negative for injury, rn pain, redness, and discharge, ENT: Negative for injury, pain, and discharge, Neck: Negative for injury, pain, and swelling, Cardiovascular: Negative for chest pain, palpitations, and edema, Respiratory: Negative for shortness of breath, cough, wheezing, and pleuritic chest pain, Abdomen/GI: Negative for abdominal pain, nausea, vomiting, diarrhea, and constipation, Back: Negative for injury and pain, : Increased urinary frequency, no hematuria MS/Extremity: Negative for injury and deformity, Skin: Negative for injury, rash, and discoloration, Neuro: Negative for headache, numbness, tingling, and seizure. 15:08 All other systems are negative. Exam: 15:08 Constitutional: This is a well developed, well nourished patient who is awake, alert, rn and in no acute distress. Slow to get into bed but does not require assistance. Head/Face: Normocephalic, atraumatic. Eyes: Pupils equal round and reactive to light, extra-ocular motions intact. Lids and lashes normal. Conjunctiva and sclera are non-icteric and not injected. Cornea within normal limits. Periorbital areas with no swelling, redness, or edema. ENT: Very dry mucous membranes Cardiovascular: Regular rate and rhythm. No pulse deficits. Respiratory: No increased work of breathing, no retractions or nasal flaring. Abdomen/GI: Soft, nontender Skin: Warm, dry MS/ Extremity: Pulses equal, no cyanosis. Neuro: Awake and alert, GCS 15 17:54 ECG was reviewed by the Attending Physician. rn Vital Signs: 14:11 Pulse 87; Resp 18; Temp 96.3; Pulse Ox 96% on R/A; Weight 77.11 kg (R); Height 6 ft. 0 kg in. (182.88 cm); Pain 0/10; 14:25 BP 128 / 61; kg 17:39 BP 100 / 71; Pulse 75; Resp 18; Pulse Ox 94% on 2 lpm NC; ll1 14:11 Body Mass Index 23.06 (77.11 kg, 182.88 cm) kg MDM: 14:25 Patient medically screened. rn 15:25 ED course: Post void only 88 cc. rn 15:59 Differential diagnosis: UTI, Bunions, dehydration, sepsis. Data reviewed: vital signs, rn nurses notes, lab test result(s), EKG, radiologic studies, plain films, and as a result, I will admit patient. Data interpreted: athletic monitor: rate is 87 beats/min, rhythm is normal sinus rhythm, regular, with no ectopy, Interpretation: normal rate, normal rhythm, Pulse oximetry: on room air is 93 %. Interpretation: hypoxia. Plan: O2 by NC applied. Test interpretation: by ED physician or midlevel provider: ECG, plain radiologic studies, Chest x-ray with right early pneumonia. Counseling: I had a detailed discussion with the patient and/or guardian regarding: the historical points, exam findings, and any diagnostic results supporting the discharge/admit diagnosis, lab results, radiology results, the need for further work-up and treatment in the hospital. Response to treatment: the patient's symptoms have mildly improved after treatment. Response to treatment: and as a result, I will admit patient. Admission orders: after a detailed discussion of the patient's condition and case, the admit orders are written by me. 15:59 ED course: Patient with early right-sided pneumonia, will admit to Dr. Glaser for further rn care, already seen by Dr. Henderson. 03/18 14:33 Order name: CBC with Diff rn 03/18 14:33 Order name: Basic Metabolic Panel rn 03/18 14:33 Order name: Blood Culture Adult (2) rn 03/18 14:33 Order name: Lactate; Complete Time: 15:51 rn 03/18 14:33 Order name: Procalcitonin; Complete Time: 16:24 rn 03/18 14:33 Order name: Protime (+inr); Complete Time: 15:51 rn 03/18 14:33 Order name: Ptt, Activated; Complete Time: 15:51 rn 03/18 14:33 Order name: Urine Culture rn 03/18 14:33 Order name: Urine Microscopic Only; Complete Time: 16:24 rn 03/18 14:33 Order name: CBC with Automated Diff; Complete Time: 15:08 EDMS 03/18 14:33 Order name: Basic Metabolic Panel; Complete Time: 16:24 EDMS 03/18 14:33 Order name: Blood Culture EDMS 03/18 14:34 Order name: Magnesium; Complete Time: 16:24 rn 03/18 15:30 Order name: Urine Dipstick-Ancillary; Complete Time: 15:51 EDMS 03/18 15:55 Order name: SARS-COV-2 RT PCR; Complete Time: 16:02 EDMS 03/18 18:04 Order name: Lipid Profile EDMS 03/18 18:04 Order name: Hemoglobin A1c EDMS 03/18 18:13 Order name: Basic Metabolic Panel EDMS 03/18 18:13 Order name: Basic Metabolic Panel EDMS 03/18 18:13 Order name: CBC with Automated Diff EDMS 03/18 18:13 Order name: CBC with Automated Diff EDMS 03/18 18:14 Order name: Urinalysis EDMS 03/18 18:35 Order name: BMP ll1 03/18 18:45 Order name: Glucose, Ancillary Testing EDMS 03/18 19:14 Order name: LDL, Direct EDMS 03/18 19:27 Order name: Basic Metabolic Panel EDMO 03/18 20:10 Order name: Glucose, Ancillary Testing EDMS 03/18 21:13 Order name: Glucose, Ancillary Testing EDMS 03/18 21:19 Order name: Glucose ea 03/18 14:33 Order name: Chest Single View XRAY; Complete Time: 15:51 rn 03/18 14:34 Order name: EKG; Complete Time: 14:34 rn 03/18 21:52 Order name: Glucose, Ancillary Testing EDMS 03/18 22:02 Order name: Glucose Level EDMS 03/18 22:18 Order name: Glucose, Ancillary Testing EDMS 03/18 23:31 Order name: Glucose, Ancillary Testing EDMS 03/19 00:02 Order name: Basic Metabolic Panel EDMS 03/19 00:17 Order name: Glucose, Ancillary Testing EDMS 03/19 00:18 Order name: Acetone Level EDMS 03/19 01:20 Order name: Glucose, Ancillary Testing EDMS 03/19 02:29 Order name: Glucose, Ancillary Testing EDMS 03/19 03:05 Order name: Acetone Level EDMS 03/19 03:13 Order name: Calcium Level EDMS 03/19 03:13 Order name: Phosphorus EDMS 03/19 03:13 Order name: Magnesium EDMS 03/19 03:22 Order name: Basic Metabolic Panel EDMS 03/19 03:26 Order name: Glucose, Ancillary Testing EDMS 03/19 05:02 Order name: Glucose, Ancillary Testing EDMS 03/19 06:13 Order name: Glucose, Ancillary Testing EDMS 03/19 07:10 Order name: Glucose, Ancillary Testing EDMS 03/19 08:00 Order name: Glucose, Ancillary Testing EDMS 03/19 08:49 Order name: Acetone Level EDMS 03/19 08:50 Order name: Basic Metabolic Panel EDMS 03/19 09:17 Order name: RAD EDMS 03/19 09:57 Order name: Glucose, Ancillary Testing EDMS 03/18 14:33 Order name: IV Start; Complete Time: 14:35 rn 0810 14:33 Order name: Cardiac monitoring; Complete Time: 14:54 rn 03/18 14:33 Order name: EKG - Nurse/Tech; Complete Time: 14:54 rn 10 14:33 Order name: IV Saline Lock - Large Bore; Complete Time: 14:35 rn 10 14:33 Order name: Labs collected and sent; Complete Time: 14:35 rn 10 14:33 Order name: O2 Per Protocol; Complete Time: 14:35 rn 0810 14:33 Order name: O2 Sat Monitoring; Complete Time: 14:35 rn 10 14:33 Order name: Urine Dipstick-Ancillary (obtain specimen); Complete Time: 15:32 rn 10 14:34 Order name: EKG - Nurse/Tech; Complete Time: 14:54 rn 10 15:25 Order name: Bladder Scanner; Complete Time: 15:32 rn 0810 18:13 Order name: Consistent Carb (ADA) 1800 Donte EDMS EC:54 Rate is 84 beats/min. Rhythm is irregularly irregular. QRS [place] is Normal. QRS interval rn is normal. QT interval is normal. No Q waves. T waves are Normal. No ST changes noted. Clinical impression: Atrial Flutter. Interpreted by me. Reviewed by me. Administered Medications: 15:04 Drug: NS 0.9% 1000 ml Route: IV; Rate: 1000 ml; Site: right forearm; ll1 16:00 Follow up: Response: No adverse reaction; RASS: Alert and Calm (0); IV Status: ll1 Completed infusion; IV Intake: 1000ml 16:42 Drug: Insulin Regular Human 10 units {Co-Signature: vg1 (Lore Humphrey RN).} Route: ll1 IVP; Site: right forearm; 17:38 Follow up: Response: No adverse reaction; RASS: Alert and Calm (0) ll1 16:43 Drug: Rocephin (cefTRIAXone) 1 grams Route: IV; Rate: calculated rate; Site: right ll1 forearm; 17:38 Follow up: Response: No adverse reaction; IV Status: Completed infusion; IV Intake: [id number] 16:44 Not Given (Physician Discretion; doctor changed order): Insulin Regular Human 10 units ll1 Sub-Q once 16:44 Drug: NS 0.9% 1000 ml Route: IV; Rate: 1000 ml; Site: right forearm; ll1 18:28 Follow up: Response: No adverse reaction; IV Status: Completed infusion; IV Intake: ll1 1000ml 17:35 Drug: Insulin Drip - (Insulin Regular Human 100 units, NS 0.9% 100 ml) {Co-Signature: ll1 vg1 (Lore Humphrey RN).} Route: IV; Rate: calculated rate; Site: right forearm; 18:28 Drug: AZITHromycin 500 mg Route: IVPB; Infused Over: 1 hrs; Site: right forearm; ll1 Disposition Summary: 03/18/21 16:02 Hospitalization Ordered Hospitalization Status: Inpatient Admission rn Provider: Lico Glaser rn Condition: Stable rn Problem: new rn Symptoms: have improved rn Bed/Room Type: Standard rn Location: Telemetry/MedSurg (Inpatient)(03/19/21 12:11) bd Room Assignment: 214(03/19/21 12:11) bd Diagnosis - Pneumonia, unspecified organism rn - Other specified diabetes mellitus with ketoacidosis without coma rn - Dehydration rn Forms: - Medication Reconciliation Form rn - 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 Total time: 45 minutes Signatures: Dispatcher [employer] Margaret Jenningsara bd Elias Gay MD MD rn Garcia, Cindy RN RN cg Olamide Healy RN RN ll1 Natali Llamas, RN RN Lore Humphrey RN vg1 Corrections: (The following items were deleted from the chart) 14:23 14:16 Home Meds: spironolactone 25 mg Oral tab; kg kg 14:31 14:21 CORONAVIRUS+MR.LAB.BRZ ordered. EDMO EDMO 16:25 16:02 Telemetry/MedSurg (Inpatient) rn rn 16: 16:02 rn rn 16: 16:02 Hyperglycemia, unspecified rn rn 20:37 16:25 Intensive Care Unit rn cg 20:37 16:25 rn cg 03/19 12:11 03/18 20:37 [facility] ER HOLD cg bd 03/19 12:11 08 20:37 ERHOLD- cg bd
[2021-03-18 16:18] LABS: Urine Bacteria <20 /HPF (NONE SEEN); Urine RBC <5 /HPF (NONE SEEN); Urine Yeast PRESENT (NONE SEEN)
[2021-03-18] MEDS ORDERED: INSULIN -REGULAR HUMAN 50 UNIT/0.5 ML ML ONE (16:52)
[2021-03-18] MEDS ORDERED: CEFTRIAXONE/SWI 1gm 1 GM/10 ML SYR ONE ×2 (16:53→23:58)
[2021-03-18] MEDS ORDERED: INSULIN -REGULAR HUMAN 100 UNIT in NA CHLORIDE 0.9% 100 ML IV SCH (17:00)
[2021-03-18] MEDS ORDERED: AZITHROMYCIN 500 MG/250 ML BAG IV ONE (17:00)
[2021-03-18] MEDS ORDERED: HYDROCODONE/APAP 5/325 MG TAB PO PRN (18:03)
[2021-03-18] MEDS ORDERED: HYDRALAZINE HCL 20 MG/ML VIAL IV PRN (18:04)
[2021-03-18] MEDS ORDERED: D50W 25 GM/50 ML SYRINGE IV PRN ×2 (18:07→18:08)
[2021-03-18] MEDS ORDERED: GLUCAGON 1 MG/VIAL IM PRN ×2 (18:07→18:08)
[2021-03-18] MEDS ORDERED: ACETAMINOPHEN 500 MG TAB PO PRN (18:10)
[2021-03-18] MEDS ORDERED: ONDANSETRON 4 MG/2 ML VIAL IV PRN (18:10)
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
[2021-03-18 18:59] LABS: HDL Cholesterol 37 mg/dL (40-60)
[2021-03-18] MEDS: CEFTRIAXONE/SWI 1gm 1 GM/10 ML SYR IV SCH (19:00)
[2021-03-18 19:13] LABS: LDL, Direct 108 mg/dL (100-129)
[2021-03-18 19:25] LABS: Potassium 3.7 mmol/L (3.5-5.1)
[2021-03-18] MEDS ORDERED: ALBUTEROL 2.5 MG/3 ML NEB SOL ONE (20:00)
[2021-03-18] MEDS: ALBUTEROL 2.5 MG/3 ML NEB SOL NEB SCH (20:00)
[2021-03-18] MEDS: IPRATROPIUM BROM 0.5MG/2.5ML NEB SCH (20:00)
[2021-03-18] MEDS ORDERED: IPRATROPIUM BROM 0.5MG/2.5ML ONE (20:00)
[2021-03-18] MEDS ORDERED: METHYLPREDNISOLONE 40 MG INJ ONE (20:33)
[2021-03-18] MEDS ORDERED: HEPARIN 5000 UNIT/ML 1 ML VIAL ONE (20:33)
[2021-03-18] MEDS ORDERED: INSULIN -REGULAR HUMAN 50 UNIT/0.5 ML ML SQ SCH (21:00)
[2021-03-18] MEDS ORDERED: INSULIN GLARGINE 100 UNITS/ML SQ SCH (21:00)
[2021-03-18] MEDS ORDERED: NACHLORIDE 0.45% 1,000 ML IV ONE (21:10)
[2021-03-18] MEDS: NACHLORIDE 0.45% 1,000 ML IV SCH (23:00)
[2021-03-18] MEDS ORDERED: KCL 20 MEQ/100 mL IVPB 20 MEQ/100 ML BAG IV SCH (23:00)
[2021-03-18] MEDS ORDERED: NACHLORIDE 0.45% 1,000 ML with POTASSIUM CL 20 MEQ IV SCH ×4 (23:00)
[2021-03-18 23:53] LABS: BUN Blood Urea Nitrogen 62 mg/dL (7-18); Bicarbonate 23 mmol/L (21-32); Glucose Level 352 mg/dL (74-106); Potassium 3.9 mmol/L (3.5-5.1); Sodium Level 139 mmol/L (136-145)
[2021-03-18] MEDS ORDERED: D5.45NS W/KCL 20MEQ 1,000 ML IV ONE (23:58)
[2021-03-19] MEDS: METHYLPREDNISOLONE 40 MG INJ IV SCH ×3 (01:00→16:47)
[2021-03-19] MEDS: HEPARIN 5000 UNIT/ML 1 ML VIAL SQ SCH ×3 (01:00→16:46)
[2021-03-19] MEDS: ALBUTEROL 2.5 MG/3 ML NEB SOL NEB SCH ×3 (01:26→14:48)
[2021-03-19] MEDS: IPRATROPIUM BROM 0.5MG/2.5ML NEB SCH ×4 (01:26→20:05)
[2021-03-19] MEDS ORDERED: ALBUTEROL 2.5 MG/3 ML NEB SOL ONE ×2 (01:30→09:06)
[2021-03-19] MEDS ORDERED: IPRATROPIUM BROM 0.5MG/2.5ML ONE ×2 (01:31→09:06)
[2021-03-19 02:52] LABS: Absolute Lymphocytes (CBC) 3.9 K/uL (0.7-4.9); Basophils % 0.9 % (0-1.3); Hematocrit 39.6 % (39.6-49.0); Lymphocytes % 24.4 % (15.3-44.8); MPV 9.5 fL (7.6-11.3)
[2021-03-19 03:11] LABS: Magnesium 2.7 mg/dL (1.8-2.4); Phosphorus 1.9 mg/dL (2.5-4.9)
[2021-03-19 03:14] LABS: BUN Blood Urea Nitrogen 55 mg/dL (7-18); Bicarbonate 22 mmol/L (21-32); Glucose Level 209 mg/dL (74-106); Sodium Level 140 mmol/L (136-145)
[2021-03-19 03:22] LABS: Potassium 3.6 mmol/L (3.5-5.1)
[2021-03-19] MEDS: D5.45NS W/KCL 20MEQ 1,000 ML IV SCH ×2 (03:36→05:40)
[2021-03-19] MEDS: NACHLORIDE 0.45% 1,000 ML IV SCH ×4 (06:25→18:00)
[2021-03-19] MEDS: INSULIN -REGULAR HUMAN 50 UNIT/0.5 ML ML SQ SCH ×7 (07:30→20:29)
--- NOTE | 2021-03-19 07:32 | EKG ---
Test Date: 2021-03-18 Test Time: 14:47:50 Tailoring Teacher: JOSH MEASUREMENT RESULTS: Intervals: Rate: 84 SD: QRSD: 86 QT: 380 QTc: 449 [place]: P: SD: QRS: -29 T: 80 INTERPRETIVE STATEMENTS: Atrial fibrillation Inferior infarct, age undetermined Anterolateral infarct, age undetermined Abnormal ECG Compared to ECG 02/18/2021 16:33:37 Sinus rhythm no longer present Ventricular premature complex(es) no longer present Left-axis deviation no longer present Myocardial infarct finding still present Electronically Signed On 03-19-21 07:31:08 CDT by Silvio Loyd
[2021-03-19] MEDS ORDERED: ASPIRIN 81 MG CHEWABLE TABLET ONE (07:54)
[2021-03-19] MEDS ORDERED: HEPARIN 5000 UNIT/ML 1 ML VIAL ONE (07:54)
[2021-03-19] MEDS ORDERED: METHYLPREDNISOLONE 40 MG INJ ONE (07:55)
[2021-03-19] MEDS ORDERED: CEFTRIAXONE 1000 MG/VIAL ONE (07:55)
[2021-03-19] MEDS ORDERED: D5.45NS W/KCL 20MEQ 1,000 ML IV ONE (07:55)
[2021-03-19] MEDS: CEFTRIAXONE/SWI 1gm 1 GM/10 ML SYR IV SCH (08:34)
[2021-03-19 08:50] LABS: BUN Blood Urea Nitrogen 48 mg/dL (7-18); Bicarbonate 22 mmol/L (21-32); Glucose Level 183 mg/dL (74-106); Potassium 3.8 mmol/L (3.5-5.1); Sodium Level 138 mmol/L (136-145)
[2021-03-19] MEDS: AZITHROMYCIN IV 500 MG in NA CHLORIDE 0.9% 250 ML IVPB SCH (09:00)
--- NOTE | 2021-03-19 09:16 | RAD REPORT ---
EXAM DESCRIPTION: RAD - Chest Single View - 03/19/2021 9:08 am CLINICAL HISTORY: pneumonia COMPARISON: Chest Single View dated 03/18/2021; Chest Single View dated 02/18/2021; Chest Single View dated 02/07/2021; Chest Pa And Lat (2 Views) dated 02/04/2021 FINDINGS: No evidence of edema or pneumonia. The heart size is within normal limits.No acute osseous abnormality. No significant pleural effusions or pneumothorax. Atherosclerosis. IMPRESSION: No acute cardiopulmonary disease. Questionable infiltrate at the right lung base is not appreciated on today's radiograph.
[2021-03-19] MEDS ORDERED: GLUCAGON 1 MG/VIAL IM PRN (10:03)
[2021-03-19] MEDS ORDERED: D50W 25 GM/50 ML SYRINGE IV PRN (10:03)
[2021-03-19] MEDS: INSULIN 70/30 100 UNITS/ML SQ SCH (10:30)
[2021-03-19] MEDS ORDERED: INSULIN 70/30 100 UNITS/ML SQ ONE (10:52)
[2021-03-19] MEDS ORDERED: NACHLORIDE 0.45% 1,000 ML IV ONE (10:54)
[2021-03-19 10:58] VITALS: BMI 23.0
[2021-03-19] MEDS ORDERED: POTASSIUM CL SA 10 MEQ TAB PO ONE (11:10)
[2021-03-19] MEDS ORDERED: PNEUMOCOCCAL VACCINE 0.5 ML IMVAC ONE (12:00)
--- NOTE | 2021-03-19 12:03 | CON ---
Date of Consultation: 03/18/2021 Reason For Consultation: Elevated BUN and creatinine. History Of Present Illness: This is a pleasant 85-year-old gentleman, follows up with barbara Basurto ith chronic kidney disease, baseline creatinine around 1.5, coronary artery disease complicated with congestive heart failure. Advanced COPD on maintenance O2, diabetes, the patient visited with Dr. Proctor in the office, found to have weakness, polyuria, elevated BUN and creatinine. For that reason, the patient was directed to the ER, in the ER found to be hypoxemic, found to have pneumonia, elevat ed BUN and creatinine. For that reason, we have been consulted. The patient's baseline creatinine a s I mentioned 1.5, currently 1.7. The patient denied taking any nonsteroidal. The patient has polyu orion. Allergies: NO KNOWN DRUG ALLERGIES. Home Medications: Include aspirin, isosorbide, metoprolol, albuterol, breathing treatment, hydrochlo rothiazide. Past Surgical History: Includes CABG. Past Medical History: Chronic kidney disease stage 3, baseline creatinine 1.5, hypertension, COPD, c oronary artery disease complicated with congestive heart failure. Family History: Positive for heart disease, coronary artery disease. Social History: Positive for alcohol. Ex-smoker. No drugs abuse. Review of Systems: Head and Neck: No red eye. No ear pain. GI: No nausea. No vomiting. : Has polyuria. No dysuria. Economic Development Coordinator: Not applicable. Respiratory: Has shortness of breath. Cardiovascular: No chest pain. Endocrine: No polydipsia. Skin: No rash. Neuro: Generalized weakness. Musculoskeletal: Fatigue. Physical Examination: Vital Signs: Blood pressure of 100/70, pulse of 60, afebrile. Chest: Crackles on the right base. Heart: S1, S2. Regular. Systolic murmur. Abdomen: Soft, nontender. Extremity: No edema. Neuro: Alert. No focality. Laboratory Data: WBC 16.8, H and H 14.6/45.1. Sodium 139, potassium 3.9, bicarb 23, BUN 62, creatin ine 1.7, calcium 8.9, blood sugar above 400. Urinalysis; specific gravity of 1.010, negative for inf ection. Postvoid renal scan 66 mL. Assessment And Plan: 1.Acute kidney injury secondary to prerenal, superimposed with hydrochlorothiazide. I am going to s tart the patient on gentle hydration. We will follow up postvoid scan and we will monitor. Hold hyd rochlorothiazide. 2.Hypertension, controlled, optimal, currently on the lower side. Hold hydrochlorothiazide. We ziggy l start gentle hydration. 3.Hypokalemia. We will supplement. 4.Hyperglycemia. Follow up with primary. PHILIP/JEROME Voice ID: [id number] Report ID: [id number]
--- NOTE | 2021-03-19 15:27 | PN ---
Date of Progress Note: 03/19/2021 Subjective: The patient was admitted with acute kidney injury secondary to prerenal multifactorial s econdary to glucose diuresis/hydrochlorothiazide. The patient is started on insulin drip. Polyuria has been subsided. Hydrochlorothiazide was discontinued and started hydration. Kidney function has been improved. Physical Examination: Vital Signs: Blood pressure of 110/68, pulse of 62, afebrile. Chest: Crackles on the right base. Heart: S1, S2. Systolic murmur. Abdomen: Soft, nontender. Extremities: No edema. Laboratory Data: Sodium 138, potassium 3.8, bicarb 22, BUN 48, creatinine 1.2, GFR 54, calcium 8.6. Current Medications: The patient on, include: 1.Breathing treatment. 2.Ceftriaxone. 3.Azithromycin. 4.Heparin. 5.Ipratropium. 6.Insulin drip. Assessment And Plan: 1.Acute kidney injury secondary to prerenal, secondary to glucose diuresis, superimposed with hydroc hlorothiazide, recovered, resolved. I will discontinue IV fluid and we will monitor the patient. 2.Hypertension with the presence of acute kidney injury. Keep holding hydrochlorothiazide. 3.Hyponatremia secondary to hydrochlorothiazide and depletion on the recovery. 4.Hypokalemia. We will supplement. 5.Pneumonia as by primary. 6.Polyuria secondary to glucose diuresis. Obstructive uropathy has been ruled out. We will follow up after better correction of glucose. 7.Diabetes with symptomatic polyuria secondary to hyperglycemia. We will follow up with the primary . 8.Pneumonia. Continue current antibiotic. PHILIP/JEROME Voice ID: [id number] Report ID: [id number]
[2021-03-19] MEDS ORDERED: ALBUTEROL 2.5 MG/3 ML NEB SOL NEB PRN (17:12)
[2021-03-19] MEDS ORDERED: ALBUTEROL INHALER 60 PUFF/8 GM IH PRN (17:12)
[2021-03-19] MEDS ORDERED: ASPIRIN 81 MG CHEWABLE TABLET PO SCH (19:00)
[2021-03-19] MEDS: DOCOSAHEXANOIC AC/EPA 1000 MG PO SCH (20:30)
[2021-03-19] MEDS: ATORVASTATIN 20 MG TAB PO SCH (20:30)
[2021-03-19] MEDS: METOPROLOL TAR 25 MG TAB PO SCH (20:30)
[2021-03-19] MEDS ORDERED: HOME MED 1 EA UNK (Simvastatin [Simvastatin] 40 MG Tablet) PO SCH (21:00)
[2021-03-19] MEDS ORDERED: HOME MED 1 EA UNK (Omega-3 Fatty Acids [Omega-3] 1,000 MG Capsule) PO SCH (21:00)
[2021-03-19] MEDS ORDERED: predniSONE 10 MG TAB PO SCH (21:00)
[2021-03-20] MEDS: METHYLPREDNISOLONE 40 MG INJ IV SCH ×3 (00:43→16:01)
[2021-03-20] MEDS: HEPARIN 5000 UNIT/ML 1 ML VIAL SQ SCH ×3 (00:43→16:02)
[2021-03-20] MEDS: IPRATROPIUM BROM 0.5MG/2.5ML NEB SCH ×4 (01:35→21:05)
[2021-03-20] MEDS: NACHLORIDE 0.45% 1,000 ML IV SCH ×2 (02:38→09:30)
--- NOTE | 2021-03-20 03:19 | P.PN ---
Subjective Date of Service: 03/19/21 Subjective: No new changes Patient clinically doing better with no new complaints. Review of Systems 10-point ROS is otherwise unremarkable Physical Examination - Vital Signs Temperature: 97 F Blood Pressure: 100/67 Pulse: 63 Respirations: 18 Pulse Ox (%): 96 - Physical Exam General: Alert, In no apparent distress, Oriented x3 Respiratory: Clear to auscultation bilaterally, Normal air movement Cardiovascular: Regular rate/rhythm, Normal S1 S2, No murmurs Gastrointestinal: Normal bowel sounds, Soft and benign, Non-distended, No tenderness Musculoskeletal: No clubbing, No swelling, No tenderness Integumentary: No rashes Neurological: Normal speech, Normal tone, Normal affect Lymphatics: No axilla or inguinal lymphadenopathy - Studies Medications List Reviewed: Yes Assessment & Plan - Problems (Diagnosis) (1) COPD with acute exacerbation Current Visit: No Status: Acute (2) Community acquired bacterial pneumonia Current Visit: No Status: Acute (3) Hypoxemia Current Visit: No Status: Acute (4) CAD (coronary artery disease) Current Visit: No Status: Chronic Qualifiers: Coronary Disease-Associated Artery/Lesion type: unspecified vessel or lesion type [place] vs. 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 Continue with IV antibiotics 2. Awaiting sputum and blood culture 3. Repeat chest x-ray 4. Will proceed with CT scan of the chest if pneumonia is not improved to evaluate for postobstructive pneumonia 5. Appreciate pulmonary consultation 6. Continue with nebs as needed 7. O2 per protocol 8. Continue with gentle hydration 9. Repeat labs including CBC and renal function in a.m. 10. GI and DVT prophylaxis - Advance Directives Does patient have a Living Will: No Does patient have a Durable POA for Healthcare: No - Code Status/Comfort Care Code Status: Full Code Physician Review: Patient Assessed, Agree with Above Assessment and Plan
[2021-03-20 05:40] LABS: Basophils % 0.3 % (0-1.3); Hematocrit 35.2 % (39.6-49.0); Lymphocytes % 10.4 % (15.3-44.8); MPV 9.6 fL (7.6-11.3); RBC Red Blood Cell Count 3.89 M/uL (4.33-5.43)
[2021-03-20 05:59] LABS: Magnesium 2.5 mg/dL (1.8-2.4); Phosphorus 2.9 mg/dL (2.5-4.9); Potassium 4.5 mmol/L (3.5-5.1)
--- NOTE | 2021-03-20 07:25 | RAD REPORT ---
EXAM DESCRIPTION: RAD - Chest Single View - 03/20/2021 5:01 am CLINICAL HISTORY: pneumonia COMPARISON: Chest Single View dated 03/19/2021; Chest Single View dated 03/18/2021; Chest Single View dated 02/18/2021; Chest Single View dated 02/07/2021 FINDINGS: Mild increase of ill-defined basilar airspace opacities. The heart size is within normal l imits.No acute osseous abnormality. No significant pleural effusions or pneumothorax. IMPRESSION: Mild increased basilar airspace disease may reflect atelectasis and/or pneumonia.
[2021-03-20] MEDS: INSULIN -REGULAR HUMAN 50 UNIT/0.5 ML ML SQ SCH ×7 (08:12→21:00)
[2021-03-20] MEDS: INSULIN 70/30 100 UNITS/ML SQ SCH (08:13)
[2021-03-20] MEDS: ISOSORBIDE MONO SR 60 MG TAB PO SCH (08:14)
[2021-03-20] MEDS: DOCOSAHEXANOIC AC/EPA 1000 MG PO SCH ×2 (08:15→21:07)
[2021-03-20] MEDS: METOPROLOL TAR 50 MG TAB PO SCH (08:15)
[2021-03-20] MEDS: CEFTRIAXONE/SWI 1gm 1 GM/10 ML SYR IV SCH (08:16)
[2021-03-20] MEDS: PATIROMER CALCIUM SORBITEX PO SCH (08:17)
[2021-03-20] MEDS: HOME MED 1 EA UNK (Fluticasone/Umeclidin/Vilanter [Trelegy Ellipta 200-62.5-25] Blst.W.Dev IH SCH (08:17)
[2021-03-20] MEDS ORDERED: ASPIRIN EC 81 MG TAB PO SCH (09:00)
[2021-03-20] MEDS ORDERED: ISOSORBIDE MONONITRATE 120 MG PO SCH (09:00)
[2021-03-20] MEDS: AZITHROMYCIN IV 500 MG in NA CHLORIDE 0.9% 250 ML IVPB SCH (09:29)
[2021-03-20] MEDS ORDERED: D50W 25 GM/50 ML SYRINGE IV PRN (11:07)
[2021-03-20] MEDS ORDERED: GLUCAGON 1 MG/VIAL IM PRN (11:07)
--- NOTE | 2021-03-20 17:27 | PN ---
Date of Progress Note: 03/20/2021 Subjective: The patient was admitted with pneumonia, acute kidney injury secondary to poor intake jimenez perimposed with hydrochlorothiazide. After hydration and holding hydrochlorothiazide, kidney functio n has been improved. Physical Examination: Vital Signs: Blood pressure 125/62, pulse of 67, afebrile. Chest: Faint crackles on the right base. Heart: S1, S2. Regular. Abdomen: Soft, nontender. Extremity: No edema. Neuro: Alert. No focality. The patient had urine output of 1300. Current Medications: The patient on include IV fluid at 75 per hour normal saline, Zithromax, ceftri axone, isosorbide, metoprolol 50 daily, breathing treatment, Solu-Medrol. Assessment And Plan: 1.Acute kidney injury secondary to prerenal, superimposed with hydrochlorothiazide, recovered, resol adam. 2.Hyponatremia secondary to depletional, superimposed with hydrochlorothiazide, recovered. 3.Hypokalemia, status post supplement, resolved. 4.Pneumonia. Follow up with Primary and Pulmonary. PHILIP/JEROME Voice ID: [id number] Report ID: [id number]
[2021-03-20] MEDS ORDERED: INSULIN GLARGINE 100 UNITS/ML SQ SCH (21:00)
[2021-03-20] MEDS: METOPROLOL TAR 25 MG TAB PO SCH (21:07)
[2021-03-20] MEDS: ATORVASTATIN 20 MG TAB PO SCH (21:07)
[2021-03-20] MEDS: GLUCERNA SHAKE 237 ML CAN PO SCH (21:08)
[2021-03-21] MEDS: HEPARIN 5000 UNIT/ML 1 ML VIAL SQ SCH ×2 (00:04→09:58)
[2021-03-21] MEDS: METHYLPREDNISOLONE 40 MG INJ IV SCH ×2 (00:04→09:00)
[2021-03-21] MEDS: IPRATROPIUM BROM 0.5MG/2.5ML NEB SCH ×2 (02:30→09:15)
[2021-03-21 06:55] LABS: Basophils % 0.2 % (0-1.3); MPV 9.3 fL (7.6-11.3); RBC Red Blood Cell Count 3.85 M/uL (4.33-5.43)
[2021-03-21] MEDS: INSULIN -REGULAR HUMAN 50 UNIT/0.5 ML ML SQ SCH ×4 (07:30→13:21)
[2021-03-21 07:34] LABS: Magnesium 2.4 mg/dL (1.8-2.4); Phosphorus 2.6 mg/dL (2.5-4.9)
[2021-03-21 08:53] LABS: Blood Morphology Comment NOT SEEN (NOT SEEN); Platelet Estimate DECR; White Blood Cell Scan OK (OK)
[2021-03-21] MEDS: HOME MED 1 EA UNK (Fluticasone/Umeclidin/Vilanter [Trelegy Ellipta 200-62.5-25] Blst.W.Dev IH SCH (09:00)
[2021-03-21] MEDS: METOPROLOL TAR 50 MG TAB PO SCH (09:00)
[2021-03-21] MEDS: GLUCERNA SHAKE 237 ML CAN PO SCH (09:00)
[2021-03-21] MEDS: PATIROMER CALCIUM SORBITEX PO SCH (09:00)
--- NOTE | 2021-03-21 09:09 | RAD REPORT ---
EXAM DESCRIPTION: RAD - Chest Single View - 03/21/2021 5:38 am CLINICAL HISTORY: pneumonia Chest pain. COMPARISON: Chest Single View dated 03/20/2021; Chest Single View dated 03/19/2021; Chest Single View dated 03/18/2021; Chest Single View dated 02/18/2021 FINDINGS: Portable technique limits examination quality. Since 03/20/2021, little overall change is identified. The lungs remain mildly emphysematous with bel ly similar/ stable appearance of the basilar opacities. The heart is mildly enlarged in size. No disp laced fractures. IMPRESSION: Stable chest since 03/20/2021.
[2021-03-21 09:58] VITALS: TEMP 97
[2021-03-21] MEDS: CEFTRIAXONE/SWI 1gm 1 GM/10 ML SYR IV SCH (09:58)
[2021-03-21] MEDS: DOCOSAHEXANOIC AC/EPA 1000 MG PO SCH (09:58)
[2021-03-21] MEDS: AZITHROMYCIN IV 500 MG in NA CHLORIDE 0.9% 250 ML IVPB SCH (09:58)
[2021-03-21] MEDS: ISOSORBIDE MONO SR 60 MG TAB PO SCH (09:59)
[2021-03-21 13:55] VITALS: O2SAT 95
[2021-03-21 15:18] VITALS: BP 124/80
[2021-03-22] MEDS ORDERED: AZITHROMYCIN 250 MG TAB PO SCH (09:00)
--- NOTE | 2021-03-24 09:08 | PN ---
Date of Progress Note: 03/21/2021 Chief Complaint: Acute kidney injury. Subjective: The patient was admitted with pneumonia. He has secondary patient was found to have improvement of renal function. The patient now . Review of Systems: Denies fever . Objective: Lungs: Clear to auscultation bilaterally. Heart: S1, S2. Abdomen: Soft, benign. Extremities: No edema. Impression And Plan: Acute kidney with hyponatremia and hypokalemia. Electrolyte abnorma lities resolved. The patient received treatment for pneumonia. He denies PND or orthopne a. Denies cough electrolytes. Continue to monitor potassium level. EB/MODL Voice ID: [id number] Report ID: [id number]
--- NOTE | 2021-03-24 10:15 | P.PN ---
Date of Service: 03/20/21 Subjective Subjective: Patient is doing well with no new complaints. Clinical symptoms are improving. Review of Systems 10-point ROS is otherwise unremarkable Physical Examination - Vital Signs Reviewed - Physical Exam General: Alert, In no apparent distress, Oriented x3 Respiratory: Clear to auscultation bilaterally, Normal air movement Cardiovascular: Regular rate/rhythm, Normal S1 S2, No murmurs Gastrointestinal: Normal bowel sounds, Soft and benign, Non-distended, No tenderness Neurological: Normal speech, Normal tone, Normal affect Assessment & Plan - Problems (Diagnosis) (1) COPD with acute exacerbation Current Visit: No Status: Acute (2) Community acquired bacterial pneumonia Current Visit: No Status: Acute (3) Hypoxemia Current Visit: No Status: Acute (4) CAD (coronary artery disease) Current Visit: No Status: Chronic Qualifiers: Coronary Disease-Associated Artery/Lesion type: unspecified vessel or lesion type [place] vs. 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 Continue with IV antibiotics 2. Awaiting sputum and blood culture 3. Repeat chest x-ray 4. Continue with cardiac meds 5. Appreciate pulmonary consultation 6. Continue with nebs as needed 7. O2 per protocol 8. Continue with gentle hydration 9. Repeat labs including CBC and renal function in a.m. 10. GI and DVT prophylaxis
--- NOTE | 2021-03-24 10:17 | P.DS ---
Discharge Date: 03/21/21 Disposition: ROUTINE DISCHARGE Discharge Condition: GOOD Reason for Admission: Urinary frequency, Dehydration - Problems (1) COPD with acute exacerbation Status: Acute (2) Community acquired bacterial pneumonia Status: Acute (3) Hypoxemia Status: Acute (4) CAD (coronary artery disease) Status: Chronic Qualifiers: Coronary Disease-Associated Artery/Lesion type: unspecified vessel or lesion type [place] vs. transplanted heart: [place] heart Associated angina: without angina Qualified Code(s): I25.10 - Atherosclerotic heart disease of [place] coronary artery without angina pectoris (5) CKD (chronic kidney disease) Status: Chronic Qualifiers: Chronic kidney disease stage 3 subtype: stage 3b (GFR 30-44) Brief History of Present Illness: Patient is an 85-year-old male with a past medical history significant for hypertension, HLD, COPD, CKD, CAD, chronic respiratory failure on home O2 therapy who presents with complaint of urinary frequency that has been ongoing for the past 4 days. Patient reports associated signs and symptoms of weakness and fatigue. Patient denies any other signs or symptoms. Symptoms are aggravated or relieved by nothing. Patient was sent to the hospital by Dr. Broussard Hospital Course: Patient has done well during hospitalization. Patient renal function is better. Patient pneumonia is stable. Oxygenation is stable. Arrangement for home oxygen have been made. Patient will go home with nebulizer treatment. Outpatient followup with pulmonary and with cardiology. Return to the emergency room if symptoms worsen. At this time, patient is stable for discharge with oral antibiotic therapy and he will need to continue with medication for COPD. Vital Signs/Physical Exam: Temp Pulse Resp BP Pulse Ox 97.0 F 64 16 124/80 95 03/21/21 12:00 03/21/21 12:00 03/21/21 12:00 03/21/21 12:00 03/21/21 12:00 General: Alert, In no apparent distress, Oriented x3 Laboratory Data at Discharge: WBC 9.00 K/uL (4.3-10.9) 03/21/21 06:42 Hgb 12.1 g/dL (13.6-17.9) L 03/21/21 06:42 Hct 35.0 % (39.6-49.0) L 03/21/21 06:42 Plt Count 135 K/uL (152-406) L 03/21/21 06:42 PT 11.2 SECONDS (9.5-12.5) 03/18/21 14:45 INR 0.97 03/18/21 14:45 APTT 21.5 SECONDS (24.3-36.9) L 03/18/21 14:45 Sodium 134 mmol/L (136-145) L 03/20/21 05:27 Potassium 4.5 mmol/L (3.5-5.1) 03/20/21 05:27 BUN 34 mg/dL (7-18) H 03/20/21 05:27 Creatinine 1.11 mg/dL (0.55-1.3) 03/20/21 05:27 Glucose 299 mg/dL (74-106) H 03/20/21 05:27 Phosphorus 2.6 mg/dL (2.5-4.9) 03/21/21 06:42 Phosphorus Cancelled 03/21/21 06:42 Magnesium 2.4 mg/dL (1.8-2.4) 03/21/21 06:42 Magnesium Cancelled 03/21/21 06:42 Triglycerides 470 mg/dL (<150) H 03/18/21 18:02 Cholesterol 207 mg/dL (<200) H 03/18/21 18:02 LDL Cholesterol Direct 108 mg/dL (100-129) 03/18/21 18:02 HDL Cholesterol 37 mg/dL (40-60) L 03/18/21 18:02 Cholesterol/HDL Ratio 5.59 03/18/21 18:02 Home Medications: Aspirin [Aspirin EC 81 MG] 81 mg PO DAILY 02/05/21 Albuterol Neb [Proventil 0.083% Neb Soln] 2.5 mg IH Q6HP PRN 03/19/21 Albuterol Sulfate [Ventolin Hfa] 2 puff IH Q6H PRN 03/19/21 Fluticasone/Umeclidin/Vilanter [Trelegy Ellipta 200-62.5-25] 1 puff IH DAILY 03/19/21 Isosorbide Mononitrate [Isosorbide Mononitrate ER] 120 mg PO DAILY 03/19/21 Metoprolol Tartrate 25 mg PO BEDTIME 03/19/21 Metoprolol Tartrate 50 mg PO DAILY 03/19/21 [place]-3 Fatty Acids [[place]-3] 1 cap PO BID 03/19/21 Patiromer Calcium Sorbitex [Veltassa] 8.4 gm PO DAILY 03/19/21 Simvastatin 40 mg PO BEDTIME 03/19/21 hydroCHLOROthiazide [Hydrochlorothiazide] 25 mg PO DAILY 03/19/21 Glucerna Shake [Glucerna*] 237 ml PO BID #60 can 03/21/21 Hydrocodone 5/APAP 325 [[place] 5/325*] 1 tab PO Q6HP PRN #30 tab 03/21/21 Insulin Detemir [Levemir Flextouch] 30 unit SQ BID #2 syr 03/21/21 Insulin Glargine Human [Lantus*] 30 units SQ BEDTIME #2 syr 03/21/21 levoFLOXacin [Levaquin] 500 mg PO DAILY #7 tab 03/21/21 predniSONE [Deltasone] 20 mg PO BID #11 tab 03/21/21 New Medications: Glucerna Shake [Glucerna*] 237 ml PO BID #60 can Insulin Glargine Human [Lantus*] 30 units SQ BEDTIME #2 syr levoFLOXacin [Levaquin] 500 mg PO DAILY #7 tab Insulin Detemir [Levemir Flextouch] 30 unit SQ BID #2 syr Hydrocodone 5/APAP 325 [[place] 5/325*] 1 tab PO Q6HP PRN #30 tab PRN Reason: Pain Scale 5-7 (Moderate) predniSONE [Deltasone] 20 mg PO BID #11 tab Physician Discharge Instructions: PROBLEM: Pneumonia, Dehydration GOAL: Clear understanding of disease process INSTRUCTIONS: OK TO DC IV AND DC HOME FOLLOW-UP WITH PRIMARY CARE PROVIDER IN 1-2 WEEKS FOLLOW-UP WITH Pulmonary IN 1-2 WEEKS RETURN TO THE ER IF symptoms worsen CALL or TEXT AT [phone] IF ANY QUESTIONS REGARDING HOSPITAL STAY. PLEASE CALL THE FLOOR AT [phone] IF ANY MEDICATION OR NURSING QUESTIONS. Diet: As tolerated Activity: Fall precautions Diet: AHA Activity: Fall precautions Followup: Jeremie Garcia MD [Primary Care Provider] - Time spent managing pt's care (in minutes): 35
== END 2021-03-21 14:52 | disposition home health service (06) | DRG 190 ==
LOC: ER 13:49 → ERHOLD 17:58 → 2ND 03-19 12:25
PROVIDERS: ADMIT Hospitalist; ATTEND Hospitalist
DX: J44.0 Chronic obstructive pulmonary disease with (acute) lower respiratory infection (principal); J15.9 Unspecified bacterial pneumonia; J18.9 Pneumonia, unspecified organism; J96.21 Acute and chronic respiratory failure with hypoxia; N17.9 Acute kidney failure, unspecified; E87.1 Hypo-osmolality and hyponatremia; J44.1 Chronic obstructive pulmonary disease with (acute) exacerbation; I25.10 Atherosclerotic heart disease of native coronary artery without angina pectoris; I12.9 Hypertensive chronic kidney disease with stage 1 through stage 4 chronic kidney disease, or unspecified chronic kidney disease; E11.22 Type 2 diabetes mellitus with diabetic chronic kidney disease; N18.30 Chronic kidney disease, stage 3 unspecified; E87.6 Hypokalemia; N18.32 Chronic kidney disease, stage 3b; Z99.81 Dependence on supplemental oxygen; Z20.822 Contact with and (suspected) exposure to COVID-19
CPT/HCPCS: 36415; 71045; 80048; 80061; 81003; 81015; 82010; 82310; 82947; 83036; 83605; 83735; 83880; 84100; 84145; 85025; 85610; 85730; 87040; 87086; 87088; 93005; 94640; 96361; 96365; 96375; 97116; 97161; 97530; 99285; J0456; J0696; J1644; J1815; J2920; J7030; J7050; U0003

== ENCOUNTER 2023-09-08 09:55 | Day surgery (SDC) | payer OTHER, BC ==
[2023-09-06 15:50] LABS: Absolute Lymphocytes (CBC) 1.4 K/uL (0.7-4.9); Hematocrit 48.1 % (39.6-49.0); MCV 90.3 fL (80-100); MPV 9.6 fL (7.6-11.3); Platelets 116 thou/uL (152-406); RBC Red Blood Cell Count 5.32 M/uL (4.33-5.43)
[2023-09-06 16:06] LABS: Potassium 3.9 mEq/L (3.5-5.1)
[2023-09-08] MEDS ORDERED: NA CHLORIDE 0.9% 1,000 ML ONE (10:09)
[2023-09-08] MEDS ORDERED: CEFAZOLIN SODIUM 1 GM/VIAL ONE (10:09)
[2023-09-08 10:43] VITALS: TEMP 97.4
[2023-09-08] MEDS ORDERED: LIDOCAINE 1% MPF 5 ML VIAL ONE (11:37)
[2023-09-08] MEDS ORDERED: propofoL 200 MG/20 ML VIAL IV ONE (11:37)
[2023-09-08] MEDS ORDERED: FENTANYL CITR 100 MCG/2 ML ONE (11:37)
[2023-09-08] MEDS ORDERED: BUPIVACAINE 0.5% PF 10 ML VIAL ONE (12:02)
[2023-09-08] MEDS ORDERED: LIDOCAINE HCL/EPINEPHRINE 20 ML MDV ONE (12:03)
--- NOTE | 2023-09-08 13:20 | P.BOP ---
Preoperative diagnosis: facial basal cell carcinoma Postoperative diagnosis: same Primary procedure: Wide excision of facial basal cell carcinoma 3x3cm with frozen Estimated blood loss: <10cc Specimen: basal cell carcinoma Anesthesia: General Complications: None Transferred to: Recovery Room Condition: Good
[2023-09-08 14:44] VITALS: BP 122/68; O2SAT 95
== END 2023-09-08 14:45 | disposition home or self-care (01) ==
LOC: OR 09:55
PROVIDERS: ATTEND Surgery
PROC: 0JB10ZZ Excision of Face Subcutaneous Tissue and Fascia, Open Approach (ICD-10-PCS; principal; 2023-09-08 11:30)
DX: C44.319 Basal cell carcinoma of skin of other parts of face (principal); L72.0 Epidermal cyst
CPT/HCPCS: 85025; 80048; 36415; 82947; 88305; 11643; J2704; J2001; J3010; J7030; J0690